=== PATIENT | female | born 1995 | race Two or more races ===

== ENCOUNTER 2016-10-27 09:38 | Emergency (ER) | payer OTHER ==
[2016-10-27] MEDS ORDERED: ACETAMINOPHEN IV (For NPO) 1,000 MG in SALINE 100 100ML.BAG IVPB STA (10:24)
[2016-10-27] MEDS ORDERED: SODIUM CHLORIDE 0.9% 1,000 ML IV STA ×4 (10:24→12:44)
[2016-10-27] MEDS ORDERED: ONDANSETRON 4 MG/2 ML VIAL IVP STA ×3 (10:24→17:49)
--- NOTE | 2016-10-27 10:27 | ED ---
General Adult HPI - General Chief complaint: Nausea/Vomiting/Diarrhea Stated complaint: VOMITING Time Seen by Provider: 10/27/16 10:15 Source: patient, RN notes reviewed Mode of arrival: ambulatory Limitations: no limitations - History of Present Illness Initial comments: Patient 21-year-old female who presents emergency room today with chief complaint of symptoms of nausea vomiting over the last 2 days. Does admit to abdominal pain greater on the left side of the abdomen. Patient states she's had a bile-like color. Denies any signs of blood. Describes it as a throbbing type pain. Denies any other complaints or symptoms. Patient denies any recent fever, chills, shortness of breath, chest pain, back pain, numbness or tingling , dysuria or hematuria, constipation or diarrhea, headaches or visual changes, or any other complaints. - Related Data Home Medications Medication Instructions Recorded Confirmed [id number] Acid 1 each PO AC-BID 08/26/15 10/27/16 [-U Capsule] Allergies Allergy/AdvReac Type Severity Reaction Status Date / Time codeine Allergy Rash/Hives Verified 10/27/16 10:00 Review of Systems ROS Statement: Those systems with pertinent positive or pertinent negative responses have been documented in the HPI. ROS Other: All systems not noted in ROS Statement are negative. Past Medical History Past Medical History: No Reported History History of Any Multi-Drug Resistant Organisms: None Reported Past Surgical History: No Surgical Hx Reported Past Anesthesia/Blood Transfusion Reactions: No Reported Reaction Past Psychological History: Anxiety, Depression Smoking Status: Former smoker Past Alcohol Use History: None Reported Past Drug Use History: None Reported - Past Family History Mother Family Medical History: No Reported History General Exam - General Exam Comments Initial Comments: General: The patient is awake and alert, in no distress, and does not appear acutely ill. Eye: Pupils are equal, round and reactive to light, extra-ocular movements are intact. No nystagmus. There is normal conjunctiva bilaterally. No signs of icterus. Ears, nose, mouth and throat: There are moist mucous membranes and no oral lesions. Neck: The neck is supple, there is no tenderness or JVD. Cardiovascular: There is a regular rate and rhythm. No murmur, rub or gallop is appreciated. Respiratory: Lungs are clear to auscultation, respirations are non-labored, breath sounds are equal. No wheezes, stridor, rales, or rhonchi. Gastrointestinal: Normal appearance abdomen. Normal bowel sounds. Soft on palpation. Patient does have tenderness greatest in epigastric. Mild tenderness in the left upper and lower quadrant. No rebound tenderness. No guarding. No CVA tenderness. Musculoskeletal: Normal ROM, no tenderness. Strength 5/5. Sensation intact. Pulses equal bilaterally 2+. Neurological: A&O x 3. CN II-XII intact, There are no obvious motor or sensory deficits. Coordination appears grossly intact. Speech is normal. Skin: Skin is warm and dry and no rashes or lesions are noted. Psychiatric: Cooperative, appropriate mood & affect, normal judgment. Limitations: no limitations Course Vital Signs 10/27/16 10/27/16 10/27/16 09:57 13:12 14:31 Temperature 98.0 F 97.8 F 98.8 F Pulse Rate 81 79 83 Respiratory 14 16 16 Rate Blood Pressure 134/76 130/74 127/86 O2 Sat by Pulse 99 99 98 Oximetry Medical Decision Making - Medical Decision Making Patient reexamined at this time shows no signs of distress resting comfortably in the bed. Patient's vitals are stable. No elevated blood pressure. No fever. Patient's labs been reviewed shows 13,000 white count. Shows amylase lipase elevated gradient 3000 and 20,000 aspect of the. Shows elevated liver enzymes. Patient denies any drinking. Patient ultrasound of the gallbladder does show evidence of gallstones. Case discussed with attending physician Dr. Preston who did discuss case with Dr. Devorah conklin for her PCP who recommends transfer for further evaluation possible ERCP. Case was discussed with the hospital. Admitting general surgeon Dr. Jean will admit the patient with a direct admit. Currently awaiting bed and patient will be transferred via EMS. Patient is updated of his results. Has been started on Unasyn here the emergency room. Patient's CT reviewed does show evidence of ascites. All information will be sent with patient during transfer. - Lab Data Result diagrams: 10/27/16 10:47 10/27/16 10:47 Lab Results 10/27/16 10/27/16 10/27/16 Range/Units 10:47 10:47 10:47 WBC 13.9 H (3.8-10.6) k/uL RBC 5.39 (3.80-5.40) m/uL Hgb 14.9 (11.4-16.0) gm/dL Hct 42.9 (34.0-46.0) % MCV 79.5 L (80.0-100.0) fL MCH 27.7 (25.0-35.0) pg MCHC 34.8 (31.0-37.0) g/dL RDW 15.2 (11.5-15.5) % Plt Count 297 (150-450) k/uL Neutrophils % 92 % Lymphocytes % 4 % Monocytes % 2 % Eosinophils % 1 % Basophils % 1 % Neutrophils # 12.8 H (1.3-7.7) k/uL Lymphocytes # 0.5 L (1.0-4.8) k/uL Monocytes # 0.3 (0-1.0) k/uL Eosinophils # 0.1 (0-0.7) k/uL Basophils # 0.2 (0-0.2) k/uL PT (9.0-12.0) sec INR (<1.1) APTT (22.0-30.0) sec Fibrinogen (200-500) mg/dL Sodium 145 (137-145) mmol/L Potassium 3.3 L (3.5-5.1) mmol/L Chloride 106 (98-107) mmol/L Carbon Dioxide 26 (22-30) mmol/L Anion Gap 13 mmol/L BUN 9 (7-17) mg/dL Creatinine 0.76 (0.52-1.04) mg/dL Est GFR (MDRD) Af Amer >60 (>60 ml/min/1.73 sqM) Est GFR (MDRD) Non-Af >60 (>60 ml/min/1.73 sqM) Glucose 133 H (74-99) mg/dL Calcium 10.0 (8.4-10.2) mg/dL Total Bilirubin 3.7 H (0.2-1.3) mg/dL AST 788 H (14-36) U/L ALT 1376 H (9-52) U/L Alkaline Phosphatase 251 H (38-126) U/L Lactate Dehydrogenase (313-618) U/L Total Protein 7.8 (6.3-8.2) g/dL Albumin 4.5 (3.5-5.0) g/dL Amylase 3369 H* (30-110) U/L Lipase >68059 H (23-300) U/L Urine Color Urine Appearance (Clear) Urine pH (5.0-8.0) Ur Specific [place] (1.001-1.035) Urine Protein (Negative) Urine Glucose (UA) (Negative) Urine Ketones (Negative) Urine Blood (Negative) Urine Nitrite (Negative) Urine Bilirubin (Negative) Urine Urobilinogen (<2.0) mg/dL Ur Leukocyte Esterase (Negative) Urine RBC (0-5) /hpf Urine WBC (0-5) /hpf Ur Squamous Epith Cells (0-4) /hpf Urine Mucus (None) /hpf Urine HCG, Qual Not Detected (Not Detectd) 10/27/16 10/27/16 10/27/16 Range/Units 10:47 12:41 12:41 WBC (3.8-10.6) k/uL RBC (3.80-5.40) m/uL Hgb (11.4-16.0) gm/dL Hct (34.0-46.0) % MCV (80.0-100.0) fL MCH (25.0-35.0) pg MCHC (31.0-37.0) g/dL RDW (11.5-15.5) % Plt Count (150-450) k/uL Neutrophils % % Lymphocytes % % Monocytes % % Eosinophils % % Basophils % % Neutrophils # (1.3-7.7) k/uL Lymphocytes # (1.0-4.8) k/uL Monocytes # (0-1.0) k/uL Eosinophils # (0-0.7) k/uL Basophils # (0-0.2) k/uL PT 11.4 (9.0-12.0) sec INR 1.1 (<1.1) APTT 21.7 L (22.0-30.0) sec Fibrinogen 372 (200-500) mg/dL Sodium (137-145) mmol/L Potassium (3.5-5.1) mmol/L Chloride (98-107) mmol/L Carbon Dioxide (22-30) mmol/L Anion Gap mmol/L BUN (7-17) mg/dL Creatinine (0.52-1.04) mg/dL Est GFR (MDRD) Af Amer (>60 ml/min/1.73 sqM) Est GFR (MDRD) Non-Af (>60 ml/min/1.73 sqM) Glucose (74-99) mg/dL Calcium (8.4-10.2) mg/dL Total Bilirubin (0.2-1.3) mg/dL AST (14-36) U/L ALT (9-52) U/L Alkaline Phosphatase (38-126) U/L Lactate Dehydrogenase 1095 H (313-618) U/L Total Protein (6.3-8.2) g/dL Albumin (3.5-5.0) g/dL Amylase (30-110) U/L Lipase (23-300) U/L Urine Color [place] Urine Appearance Cloudy H (Clear) Urine pH 5.5 (5.0-8.0) Ur Specific [place] 1.012 (1.001-1.035) Urine Protein 1+ H (Negative) Urine Glucose (UA) Negative (Negative) Urine Ketones Trace H (Negative) Urine Blood Negative (Negative) Urine Nitrite Negative (Negative) Urine Bilirubin 2+ H (Negative) Urine Urobilinogen 6.0 (<2.0) mg/dL Ur Leukocyte Esterase Large H (Negative) Urine RBC 2 (0-5) /hpf Urine WBC 22 H (0-5) /hpf Ur Squamous Epith Cells 46 H (0-4) /hpf Urine Mucus Few H (None) /hpf Urine HCG, Qual (Not Detectd) Disposition Clinical Impression: Choledocholithiasis with acute cholecystitis Disposition: OTHER INSTITUTION NOT DEFINED Condition: Stable Referrals: Mathieu Howard MD [Primary Care Provider] - 1-2 days Time of Disposition: 14:10 (Transferred by EMS) - Out of Hospital Transfer - Req. Specs Out of Hospital Transfer - Requested Specifics: Other Emergency Center ([facility])
[2016-10-27 11:01] LABS: Basophils # (A) 0.2 k/uL (0-0.2); Basophils % (A) 1 %; CH 28.2; CHCM 35.5; Eosinophils # (A) 0.1 k/uL (0-0.7); Eosinophils % (A) 1 %; HCT 42.9 % (34.0-46.0); HDW 2.36; HGB 14.9 gm/dL (11.4-16.0); Luc # (Auto) 0.05; Luc % (Auto) 0; Lymphocytes # (A) 0.5 k/uL (1.0-4.8); Lymphocytes % (A) 4 %; MCH 27.7 pg (25.0-35.0); MCHC 34.8 g/dL (31.0-37.0); MCV 79.5 fL (80.0-100.0); Mean Platelet Volume 7.3; Monocytes # (A) 0.3 k/uL (0-1.0); Monocytes % (A) 2 %; Neutrophils # (A) 12.8 k/uL (1.3-7.7); Neutrophils % (A) 92 %; RBC 5.39 m/uL (3.80-5.40); RDW 15.2 % (11.5-15.5); WBC 13.9 k/uL (3.8-10.6); WBC (Perox) 14.16
[2016-10-27 11:05] LABS: Appearance,Urine Cloudy (Clear); Bilirubin,Urine 2+ (Negative); Glucose,Urine (UA) Negative (Negative); Ketones,Urine Trace (Negative); Leukocyte Esterase,Urine Large (Negative); Mucus,Urine Few /hpf; Nitrite,Urine Negative (Negative); PH, Urine 5.5 (5.0-8.0); Particle Count 47241; Protein,Urine 1+ (Negative); RBC,Urine 2 /hpf (0-5); Specific Gravity,Urine 1.012 (1.001-1.035); Squamous Epithelial Cell,Urine 46 /hpf (0-4); UA Billing (MACRO vs. MICRO) MICRO; WBC,Urine 22 /hpf (0-5)
[2016-10-27 11:13] LABS: Alkaline Phosphatase 251 U/L (38-126); Anion Gap 13 mmol/L; Blood Urea Nitrogen 9 mg/dL (7-17); Carbon Dioxide 26 mmol/L (22-30); Chloride 106 mmol/L (98-107); Glucose 133 mg/dL (74-99); Non-African American GFR(MDRD) >60 (>60 ml/min/1.73 sqM); Potassium 3.3 mmol/L (3.5-5.1); Sodium 145 mmol/L (137-145); Total Bilirubin 3.7 mg/dL (0.2-1.3); Total Protein 7.8 g/dL (6.3-8.2)
--- NOTE | 2016-10-27 11:24 | XR ---
EXAMINATION TYPE: XR KUB DATE OF EXAM: 10/27/2016 11:15 AM CLINICAL HISTORY: Nausea and vomiting. TECHNIQUE: 2 upright KUB images of the abdomen are obtained COMPARISON: None. FINDINGS: Scattered gas is seen in non-distended stomach and small bowel loops. Gas slightly promine nt bowel loop upper to mid abdomen is present favors prominent transverse colon. Gas and fecal materi al is seen in non-distended colon along the periphery. There is no visceromegaly, pneumoperitoneum, or abnormal calcification appreciated. The lung bases are clear and the osseous structures are inta ct. IMPRESSION: Overall nonspecific favor nonobstructive bowel gas pattern.
[2016-10-27 11:46] LABS: AST 788 U/L (14-36); Amylase 3369 U/L (30-110)
[2016-10-27 11:47] LABS: ALT 1376 U/L (9-52)
--- NOTE | 2016-10-27 12:12 | US ---
EXAMINATION TYPE: US abdomen limited DATE OF EXAM: 10/27/2016 11:59 AM COMPARISON: NONE CLINICAL HISTORY: Pain. N/V for 2 days. EXAM MEASUREMENTS: Liver Length: 15.7 cm Gallbladder Wall: 0.3-0.4 cm CBD: 0.5 cm Right Kidney: 11.1 x 4.2 x 3.8 cm TECHNOLOGIST IMPRESSION: Pancreas: wnl Liver: wnl Gallbladder: multiple mobile stones seen Evidence for sonographic Scanlon's sign: no CBD: wnl Right Kidney: wnl Visualized pancreas is unremarkable. IVC is seen near hepatic dome. Visualized liver is felt within n ormal limits. Gallbladder is seen. There are multiple small mobile shadowing stones identified. Gall bladder wall appears mildly thickened at 3 to 4 mm. No pericholecystic fluid is seen. Sonographic Mur phy's sign is negative. IMPRESSION: There are multiple gallstones with mild abnormal gallbladder wall thickening. Findings in creased concern for acute cholecystitis though no abnormal gallbladder wall thickening or sonographic positive Scanlon sign is noted. Need to further investigate by HIDA scan should be based on clinical correlation.
[2016-10-27] MEDS ORDERED: RX INFO: IV CONTRAST WAS GIVEN 1 EACH MISC MISCELLANE PRN (12:22)
[2016-10-27 13:10] LABS: INR 1.1 (<1.1); Partial Thromboplastin Time 21.7 sec (22.0-30.0); Prothrombin Time 11.4 sec (9.0-12.0)
[2016-10-27] MEDS ORDERED: AMPICILLIN-SULBACTAM 3 GM in SODIUM CHLORIDE 0.9% 100 ML IVPB STA (13:43)
--- NOTE | 2016-10-27 14:14 | CT ---
EXAMINATION TYPE: CT abdomen pelvis w con DATE OF EXAM: 10/27/2016 2:04 PM COMPARISON: Prior ultrasound abdomen same date HISTORY: Nausea and vomiting for [address] DLP: 428.20 mGycm Automated exposure control for dose reduction was used. TECHNIQUE: Helical acquisition of images was performed from the lung bases through the pelvis. CONTRAST: Performed without Oral Contrast and with IV Contrast, patient injected with 100 ml mL of Omnipaque 30 0. FINDINGS: LUNG BASES: No significant abnormality is appreciated. LIVER/GB: Some pericholecystic fluid is present, dependent hyperdensity compatible with stones. Gallb ladder wall thickening is minimal and may be due to pericholecystic fluid, ascites PANCREAS: No significant abnormality is seen. SPLEEN: No significant abnormality is seen. ADRENALS: No significant abnormality is seen. KIDNEYS: No significant abnormality is seen. RETROPERITONEAL ADENOPATHY: None visualized REPRODUCTIVE ORGANS: No significant abnormality is seen URINARY BLADDER: No significant abnormality is seen. PELVIC ADENOPATHY: None visualized. OSSEOUS STRUCTURES: No significant abnormality is seen. BOWEL: The appendix does not appear dilated, some fluid does track along the right paracolic gutter and within the abdomen, there is no bowel obstruction. OTHER: IMPRESSION: THERE IS ASCITES PRESENT. CORRELATE TO EXCLUDE CHOLECYSTITIS. FOLLOW-UP INDICATED. APPENDICITIS NO T FELT TO BE PRESENT.
[2016-10-27] MEDS ORDERED: HYDROmorphone 1 MG/ML 1 ML SYRINGE IVP STA ×2 (14:22→17:42)
[2016-10-27] MEDS: POTASSIUM CHLORIDE 10 MEQ, LIDOCAINE 2% INJ 10 MG in SODIUM CHLORIDE 0.9% 100 ML IVPB SCH ×3 (14:24→16:27)
[2016-10-27 17:56] VITALS: BP 120/65; PULSE 78; RESP 16; TEMP 97.5
== END 2016-10-27 17:54 | disposition short-term general hospital (02) ==
LOC: EC 09:38
DX: K80.42 Calculus of bile duct with acute cholecystitis without obstruction (principal); R79.89 Other specified abnormal findings of blood chemistry; R18.8 Other ascites; Z87.891 Personal history of nicotine dependence; Z79.899 Other long term (current) drug therapy; Z88.5 Allergy status to narcotic agent
CPT/HCPCS: 99285 ×2; 96365 ×2; 96366 ×3; 96368 ×2; 96375 ×4; 96376 ×4; 36415; 80053; 82150; 83615; 83690; 85025; 85384; 85610; 85730; 81001; 81025; 87491; 87591; 74000; 76705; 74177; J2001; J2405; J3480; J1170; Q9967; J0295; J0131

== ENCOUNTER 2017-03-26 13:56 | Emergency (ER) | payer OTHER ==
[2017-03-26 14:02] VITALS: RESP 18
[2017-03-26] MEDS ORDERED: ACETAMINOPHEN TAB 325 MG TAB PO STA (14:14)
[2017-03-26] MEDS ORDERED: RX INFO: IV CONTRAST WAS GIVEN 1 EACH MISC MISCELLANE PRN (14:16)
[2017-03-26] MEDS ORDERED: METOCLOPRAMIDE 5 MG/ML 2 ML VIAL IVP STA (14:17)
[2017-03-26] MEDS: SODIUM CHLORIDE 0.9% 500 ML IV SCH ×2 (14:39→14:40)
[2017-03-26 15:03] LABS: ALT 48 U/L (9-52); AST 33 U/L (14-36); Alkaline Phosphatase 89 U/L (38-126); Anion Gap 12 mmol/L; Blood Urea Nitrogen 11 mg/dL (7-17); Calcium 9.6 mg/dL (8.4-10.2); Carbon Dioxide 22 mmol/L (22-30); Chloride 105 mmol/L (98-107); Glucose 93 mg/dL (74-99); Non-African American GFR(MDRD) >60 (>60 ml/min/1.73 sqM); Potassium 3.6 mmol/L (3.5-5.1); Sodium 139 mmol/L (137-145); Total Bilirubin 0.9 mg/dL (0.2-1.3); Total Protein 7.8 g/dL (6.3-8.2)
[2017-03-26 15:05] LABS: Basophils # (A) 0.1 k/uL (0-0.2); Basophils % (A) 0 %; CH 28.5; CHCM 36.8; Eosinophils # (A) 0.2 k/uL (0-0.7); Eosinophils % (A) 1 %; HCT 38.6 % (34.0-46.0); HDW 2.29; HGB 14.5 gm/dL (11.4-16.0); Luc # (Auto) 0.13; Luc % (Auto) 1; Lymphocytes # (A) 1.2 k/uL (1.0-4.8); Lymphocytes % (A) 7 %; MCH 29.2 pg (25.0-35.0); MCHC 37.6 g/dL (31.0-37.0); MCV 77.6 fL (80.0-100.0); Monocytes # (A) 1.1 k/uL (0-1.0); Monocytes % (A) 6 %; Neutrophils % (A) 86 %; RBC 4.98 m/uL (3.80-5.40); RDW 13.3 % (11.5-15.5); WBC 18.8 k/uL (3.8-10.6); WBC (Perox) 17.89
[2017-03-26 15:07] LABS: Appearance,Urine Cloudy (Clear); Bilirubin,Urine Negative (Negative); Glucose,Urine (UA) Negative (Negative); Ketones,Urine 1+ (Negative); Leukocyte Esterase,Urine Negative (Negative); Mucus,Urine Rare /hpf; Nitrite,Urine Negative (Negative); PH, Urine 6.5 (5.0-8.0); Particle Count 5837; Protein,Urine 1+ (Negative); RBC,Urine 3 /hpf (0-5); Specific Gravity,Urine 1.032 (1.001-1.035); Squamous Epithelial Cell,Urine 4 /hpf (0-4); UA Billing (MACRO vs. MICRO) MICRO; WBC,Urine 2 /hpf (0-5)
--- NOTE | 2017-03-26 15:17 | ED ---
General Adult HPI - General Chief complaint: Abdominal Pain Stated complaint: Sore Throat Time Seen by Provider: 03/26/17 14:03 Source: patient Mode of arrival: ambulatory Limitations: no limitations - History of Present Illness Initial comments: Patient is a 22 yo female who presents to the ED for evaluation of fever, nausea , fatigue and RLQ abdominal pain. patient states she was in her usual state of health yesterday, she does report that she took Plan B oral anti-contraceptive yesterday. Patient states she woke this morning feeling like she "got hit by a truck." Patient states she felt febrile, chilled, nauseated, diaphoretic and had no appetite. She attempted to eat a marleni cracker but couldn't stomach it. - Related Data Home Medications Medication Instructions Recorded Confirmed Levonorgestrel [Plan B One-Step] 1.5 mg PO ONCE 03/26/17 03/26/17 Multivitamins, Thera [Multivitamin 1 tab PO DAILY 03/26/17 03/26/17 (formulary)] Allergies Allergy/AdvReac Type Severity Reaction Status Date / Time codeine Allergy Rash/Hives Verified 03/26/17 14:21 Review of Systems ROS Statement: Those systems with pertinent positive or pertinent negative responses have been documented in the HPI. ROS Other: All systems not noted in ROS Statement are negative. Constitutional: Reports: fever, chills Eyes: Denies: vision change ENT: Reports: throat pain. Denies: ear pain Respiratory: Denies: cough, dyspnea, wheezes Cardiovascular: Denies: chest pain, palpitations Endocrine: Reports: fatigue Gastrointestinal: Reports: abdominal pain, nausea. Denies: vomiting, diarrhea, constipation Genitourinary: Denies: urgency, dysuria, frequency Musculoskeletal: Denies: back pain Skin: Denies: rash, lesions Neurological: Denies: headache Psychiatric: Denies: anxiety Hematological/Lymphatic: Denies: easy bleeding, easy bruising Past Medical History Past Medical History: No Reported History History of Any Multi-Drug Resistant Organisms: None Reported Past Surgical History: Cholecystectomy Past Anesthesia/Blood Transfusion Reactions: No Reported Reaction Past Psychological History: Anxiety, Depression Smoking Status: Former smoker Past Alcohol Use History: None Reported Past Drug Use History: None Reported - Past Family History Mother Family Medical History: No Reported History General Exam Limitations: no limitations General appearance: alert, other (appears uncomfortable) Head exam: Present: atraumatic, normocephalic Eye exam: Present: PERRL ENT exam: Present: normal exam Neck exam: Present: normal inspection. Absent: meningismus Respiratory exam: Present: normal lung sounds bilaterally. Absent: respiratory distress Cardiovascular Exam: Present: normal rhythm, tachycardia GI/Abdominal exam: Present: soft, tenderness (tenderness in RLQ), normal bowel sounds. Absent: rebound, rigid Rectal exam: Present: deferred Extremities exam: Present: normal inspection, full ROM, normal capillary refill. Absent: tenderness Back exam: Present: normal inspection Neurological exam: Present: alert, oriented X3, CN II-XII intact Psychiatric exam: Present: normal affect Skin exam: Present: warm Course Vital Signs 03/26/17 03/26/17 13:58 15:56 Temperature 100.1 F H 97.8 F Pulse Rate 117 H 100 Respiratory 18 18 Rate Blood Pressure 111/60 111/62 O2 Sat by Pulse 97 97 Oximetry - Reevaluation(s) Reevaluation #1: Patient reevaluated, reports feeling much better after medications. IVF infusing. patient breast fed daughter while receiving fluids. 03/26/17 15:34 Reevaluation #2: Patient reevaluated, resting comfortably. Reports she feels well. Advised of lab and CT findings. Eager for discharge home. 03/26/17 16:44 Medical Decision Making - Medical Decision Making patient seen and evaluated history obtained from patient, medical record history concerning for appendicitis as the patient has fever, anorexia and RLQ pain urine and HCG ordered Labs with leukocytosis with neutrophilia UA with no evidence of UTI Patient reports significant improvement after antiemetics and fluids Vitals improved, tachycardia reduced, fever resolved CT with enteritis, fluid in small bowel, no acute appendicitis Results discussed with patient and significant other at bedside. She was advised of leukocytosis as well as CT findings. Advised that urine and strep were negative. Patient reports feeling very well after IV fluids and antiemetics. Patient is eager for discharge home. She was advised to follow up with her primary care physician by the end of the week or to return to the emergency department for any worsening of her symptoms. Eyes patient that based on CT findings of possible enteritis it is likely she will experience mild abdominal pain as well as bowel abnormalities including diarrhea or possibly constipation for the next couple days. Advised her to return to the ER if she expresses any worsening, nausea or vomiting, inability tolerate oral intake or development of any considerations for dehydration. Patient's breast understanding and agreement with plan. - Lab Data Result diagrams: 03/26/17 14:35 03/26/17 14:35 Lab Results 03/26/17 03/26/17 03/26/17 Range/Units 14:35 14:35 14:35 WBC 18.8 H (3.8-10.6) k/uL RBC 4.98 (3.80-5.40) m/uL Hgb 14.5 (11.4-16.0) gm/dL Hct 38.6 (34.0-46.0) % MCV 77.6 L (80.0-100.0) fL MCH 29.2 (25.0-35.0) pg MCHC 37.6 H (31.0-37.0) g/dL RDW 13.3 (11.5-15.5) % Plt Count 288 (150-450) k/uL Neutrophils % 86 % Lymphocytes % 7 % Monocytes % 6 % Eosinophils % 1 % Basophils % 0 % Neutrophils # 16.0 H (1.3-7.7) k/uL Lymphocytes # 1.2 (1.0-4.8) k/uL Monocytes # 1.1 H (0-1.0) k/uL Eosinophils # 0.2 (0-0.7) k/uL Basophils # 0.1 (0-0.2) k/uL Sodium 139 (137-145) mmol/L Potassium 3.6 (3.5-5.1) mmol/L Chloride 105 (98-107) mmol/L Carbon Dioxide 22 (22-30) mmol/L Anion Gap 12 mmol/L BUN 11 (7-17) mg/dL Creatinine 0.60 (0.52-1.04) mg/dL Est GFR (MDRD) Af Amer >60 (>60 ml/min/1.73 sqM) Est GFR (MDRD) Non-Af >60 (>60 ml/min/1.73 sqM) Glucose 93 (74-99) mg/dL Plasma Lactic Acid Josh 1.0 (0.7-2.0) mmol/L Calcium 9.6 (8.4-10.2) mg/dL Total Bilirubin 0.9 (0.2-1.3) mg/dL AST 33 (14-36) U/L ALT 48 (9-52) U/L Alkaline Phosphatase 89 (38-126) U/L Total Protein 7.8 (6.3-8.2) g/dL Albumin 4.7 (3.5-5.0) g/dL Urine Color Urine Appearance (Clear) Urine pH (5.0-8.0) Ur Specific [place] (1.001-1.035) Urine Protein (Negative) Urine Glucose (UA) (Negative) Urine Ketones (Negative) Urine Blood (Negative) Urine Nitrite (Negative) Urine Bilirubin (Negative) Urine Urobilinogen (<2.0) mg/dL Ur Leukocyte Esterase (Negative) Urine RBC (0-5) /hpf Urine WBC (0-5) /hpf Ur Squamous Epith Cells (0-4) /hpf Urine Mucus (None) /hpf Urine HCG, Qual (Not Detectd) Group A Strep Rapid (Negative) 03/26/17 03/26/17 03/26/17 Range/Units 14:35 14:35 14:35 WBC (3.8-10.6) k/uL RBC (3.80-5.40) m/uL Hgb (11.4-16.0) gm/dL Hct (34.0-46.0) % MCV (80.0-100.0) fL MCH (25.0-35.0) pg MCHC (31.0-37.0) g/dL RDW (11.5-15.5) % Plt Count (150-450) k/uL Neutrophils % % Lymphocytes % % Monocytes % % Eosinophils % % Basophils % % Neutrophils # (1.3-7.7) k/uL Lymphocytes # (1.0-4.8) k/uL Monocytes # (0-1.0) k/uL Eosinophils # (0-0.7) k/uL Basophils # (0-0.2) k/uL Sodium (137-145) mmol/L Potassium (3.5-5.1) mmol/L Chloride (98-107) mmol/L Carbon Dioxide (22-30) mmol/L Anion Gap mmol/L BUN (7-17) mg/dL Creatinine (0.52-1.04) mg/dL Est GFR (MDRD) Af Amer (>60 ml/min/1.73 sqM) Est GFR (MDRD) Non-Af (>60 ml/min/1.73 sqM) Glucose (74-99) mg/dL Plasma Lactic Acid Josh (0.7-2.0) mmol/L Calcium (8.4-10.2) mg/dL Total Bilirubin (0.2-1.3) mg/dL AST (14-36) U/L ALT (9-52) U/L Alkaline Phosphatase (38-126) U/L Total Protein (6.3-8.2) g/dL Albumin (3.5-5.0) g/dL Urine Color Yellow Urine Appearance Cloudy H (Clear) Urine pH 6.5 (5.0-8.0) Ur Specific [place] 1.032 (1.001-1.035) Urine Protein 1+ H (Negative) Urine Glucose (UA) Negative (Negative) Urine Ketones 1+ H (Negative) Urine Blood Negative (Negative) Urine Nitrite Negative (Negative) Urine Bilirubin Negative (Negative) Urine Urobilinogen 2.0 (<2.0) mg/dL Ur Leukocyte Esterase Negative (Negative) Urine RBC 3 (0-5) /hpf Urine WBC 2 (0-5) /hpf Ur Squamous Epith Cells 4 (0-4) /hpf Urine Mucus Rare H (None) /hpf Urine HCG, Qual Not Detected (Not Detectd) Group A Strep Rapid Negative (Negative) Disposition Clinical Impression: Abdominal pain, Leukocytosis, Enteritis, Mesenteric adenitis Disposition: HOME SELF-CARE Condition: Good Instructions: Abdominal Pain (ED) Referrals: Mathieu Howard MD [Primary Care Provider] - 1-2 days Time of Disposition: 16:38
--- NOTE | 2017-03-26 16:11 | CT ---
EXAMINATION TYPE: CT abdomen pelvis w con DATE OF EXAM: 03/26/2017 COMPARISON: 10/27/2016 HISTORY: 22-year-old female abdominal pain, nausea, sore throat, body aches X 2 days, hx of shanice, ne g HCG TECHNIQUE: Contiguous axial scanning of the abdomen and pelvis following administration of 100 ml Omn ipaque 300 IV contrast. Delayed images through the kidneys and coronal/sagittal reconstructions perf ormed. CT DLP: 905 mGycm Automated exposure control for dose reduction was used. FINDINGS: The heart is normal size without pericardial effusion. Lung bases are clear without pleural effusion. The liver measures at the upper limits of normal in size at 17.5 cm craniocaudal. No focal liver lesi on is seen. There is mild prominence to the biliary system but with normal distal tapering of the bile duct. Find ings likely due to postcholecystectomy status. Portal venous system is patent. Adrenal glands, kidneys, spleen, and pancreas show no gross abnormality. Scattered nonenlarged mesenteric lymph nodes are present. However, a few borderline to mildly enlarge d right lower quadrant mesenteric lymph nodes are seen measuring up to 7 mm. Normal caliber appendix is seen, coronal image 37. Some prominent fluid-filled small bowel loops in the lower abdomen. There is some mild circumferentia l wall thickening of the mid ascending colon that could relate to nondistention, axial image 39 and c oronal image 36. The remainder of the colon shows moderate stool burden. Mild circumferential bladder wall thickening. Uterus and ovaries are visualized. Prominent follicular change in the right ovary with a 1.7 cm dominant follicle or functional cyst. No abnormal fluid sanjana ection in the pelvis. Bones: No osseous destructive process. IMPRESSION: 1. PROMINENT FLUID FILLED SMALL BOWEL LOOPS IN THE LOWER ABDOMEN. ADDITIONAL CIRCUMFERENTIAL WALL THI CKENING OF THE MID ASCENDING COLON. CORRELATE FOR POSSIBLE ENTEROCOLITIS. 2. MILD CIRCUMFERENTIAL BLADDER WALL THICKENING. CORRELATE FOR POSSIBLE CYSTITIS.
[2017-03-26 16:44] VITALS: BP 120/70; PULSE 91; TEMP 98
== END 2017-03-26 16:45 | disposition home or self-care (01) ==
LOC: EC 13:56
DX: K52.9 Noninfective gastroenteritis and colitis, unspecified (principal); I88.0 Nonspecific mesenteric lymphadenitis; D72.828 Other elevated white blood cell count; R00.0 Tachycardia, unspecified; Z87.891 Personal history of nicotine dependence; Z79.3 Long term (current) use of hormonal contraceptives; Z79.899 Other long term (current) drug therapy; Z88.5 Allergy status to narcotic agent; Z90.49 Acquired absence of other specified parts of digestive tract
CPT/HCPCS: 36415; 80053; 83605; 85025; 81001; 81025; 87040; 87086; 87081; 87430; 74177; 99284; 96374; 96361; J2765; Q9967

== ENCOUNTER 2017-04-02 10:44 | Inpatient (IN) | payer MEDICAID, OTHER ==
[2017-04-02 10:57] VITALS: RESP 16
[2017-04-02] MEDS ORDERED: SODIUM CHLORIDE 0.9% 1,000 ML IV STA (11:59)
[2017-04-02] MEDS ORDERED: ONDANSETRON 4 MG/2 ML VIAL IVP STA (11:59)
--- NOTE | 2017-04-02 12:04 | ED ---
Psych HPI - General Source: patient, police, EMS Mode of arrival: EMS <Carlos A Cruz - Last Filed: 04/02/17 16:47> <Karlo López - Last Filed: 04/02/17 18:29> - General Chief Complaint: Psychiatric Symptoms Stated Complaint: Mental Health Time Seen by Provider: 04/02/17 11:47 - History of Present Illness Initial Comments: This 22-year-old Afro-French female presents with psychiatric complaints. She relates that she's had significant amount of stress with relationship issues and the single fulminate this past evening. She apparently took a handful of tramadol 50 mg pills. She is unsure of the exact amount. She took these at 11:30 PM. She states that at approximately one half hour afterwards she became very nauseated and vomited. She is unsure if there is any pill fragments in the vomitus. She has continued with nausea and occasional vomiting. She states that she feels somewhat tired as well. Nursing Notes relate that she overdosed on trazodone but she is able to better clarify at his point and states that it was leftover tramadol from her recent gallbladder surgery and it was definitely a pain pill. She denies any other medical complaints. She certainly relates that she was trying to "and it all". She relates that she cannot handle the stress anymore. She also presents with abrasions to her bilateral forearms much worse on the left side. These are self -induced. Her last tetanus was just 6 months ago. She is unsure if she is . No other complaints or modifying factors. (Carlos A Cruz) - Related Data Home Medications Medication Instructions Recorded Confirmed Levonorgestrel [Plan B One-Step] 1.5 mg PO ONCE 03/26/17 04/02/17 Multivitamins, Thera [Multivitamin 1 tab PO DAILY 03/26/17 04/02/17 (formulary)] Allergies Allergy/AdvReac Type Severity Reaction Status Date / Time codeine Allergy Rash/Hives Verified 04/02/17 11:43 Review of Systems ROS Other: All systems not noted in ROS Statement are negative. <Carlos A Cruz - Last Filed: 04/02/17 16:47> ROS Other: All systems not noted in ROS Statement are negative. <Karlo López - Last Filed: 04/02/17 18:29> ROS Statement: Those systems with pertinent positive or pertinent negative responses have been documented in the HPI. Past Medical History Past Medical History: No Reported History History of Any Multi-Drug Resistant Organisms: None Reported Past Surgical History: Cholecystectomy Past Anesthesia/Blood Transfusion Reactions: No Reported Reaction Past Psychological History: Anxiety, Depression Smoking Status: Former smoker Past Alcohol Use History: None Reported Past Drug Use History: None Reported - Past Family History Mother Family Medical History: No Reported History <Carlos A Cruz - Last Filed: 04/02/17 16:47> General Exam Limitations: no limitations <Carlos A Cruz - Last Filed: 04/02/17 16:47> <Karlo López - Last Filed: 04/02/17 18:29> - General Exam Comments Initial Comments: GENERAL: The patient is well nourished and well hydrated. VITAL SIGNS: Heart rate, blood pressure, respiratory rate reviewed as recorded in nurse's notes. EYES: Pupils are round and reactive. Extraocular movements are intact. No conjunctival / lid redness or swelling. ENT: No external evidence of injury, swelling, or ecchymosis. Airway is patent. Throat is clear. NECK: Nontender. No swelling or evidence of injury. No subcutaneous emphysema. Trachea is midline. No thyroid mass. HEART: Regular rate and rhythm. Good peripheral pulses. LUNGS/CHEST: Breath sounds clear and equal bilaterally. No rales, rhonchi, or wheezes. No ecchymosis, subcutaneous emphysema, or tenderness. ABDOMEN: Abdomen soft without tenderness. No palpable masses or organomegaly. No peritoneal signs. No abdominal wall swelling or ecchymosis. EXTREMITIES: No extremity tenderness. Normal muscle tone and function. No thoracolumbar tenderness. NEUROLOGIC: Sensation is grossly intact. Cranial nerve exam reveals face is symmetrical, tongue is midline, speech is clear. SKIN: No abrasions or ecchymosis is noted. There are abrasions noted to her bilateral forearms much worse on the left side. There are no repairable lacerations. PSYCHIATRIC: Alert and oriented. Appropriate behavior and judgment. (Carlos A Cruz) Medical Decision Making - Lab Data Result diagrams: 04/02/17 12:20 04/02/17 12:20 <Carlos A Cruz - Last Filed: 04/02/17 16:47> - Lab Data Result diagrams: 04/02/17 12:20 04/02/17 12:20 <Karlo López - Last Filed: 04/02/17 18:29> - Medical Decision Making The patient was seen and examined. All diagnostics were reviewed. An IV is started and she is hydrated and received some Zofran intravenously. The EKG shows a normal sinus rhythm at a rate of 95. There is no acute ST-T wave changes identified. The AR interval is 150, QRS duration 70, and the QTc interval is 475. The laboratory does show some mild elevation of the white blood cell count which is minimal. The remainder of labs are all essentially within normal limits. This felt as though she could be medically cleared for further psychiatric treatment. The case is discussed with the psychiatric nurse and we're pending psychiatric recommendations/placement. Care will be passed off to oncoming physician at shift change. (Carlos A Cruz) Patient evaluated by EPS and they recommend inpatient admission. They will place admission orders. Patient is medically clear for psychiatric hospitalization (Karlo López) - Lab Data Lab Results 04/02/17 04/02/17 04/02/17 Range/Units 12:20 12:20 12:20 WBC 15.8 H (3.8-10.6) k/uL RBC 4.88 (3.80-5.40) m/uL Hgb 13.8 (11.4-16.0) gm/dL Hct 38.6 (34.0-46.0) % MCV 79.1 L (80.0-100.0) fL MCH 28.3 (25.0-35.0) pg MCHC 35.7 (31.0-37.0) g/dL RDW 13.2 (11.5-15.5) % Plt Count 372 (150-450) k/uL Neutrophils % 84 % Lymphocytes % 12 % Monocytes % 3 % Eosinophils % 1 % Basophils % 0 % Neutrophils # 13.2 H (1.3-7.7) k/uL Lymphocytes # 1.8 (1.0-4.8) k/uL Monocytes # 0.4 (0-1.0) k/uL Eosinophils # 0.1 (0-0.7) k/uL Basophils # 0.0 (0-0.2) k/uL Sodium 140 (137-145) mmol/L Potassium 4.0 (3.5-5.1) mmol/L Chloride 108 H (98-107) mmol/L Carbon Dioxide 23 (22-30) mmol/L Anion Gap 9 mmol/L BUN 11 (7-17) mg/dL Creatinine 0.51 L (0.52-1.04) mg/dL Est GFR (MDRD) Af Amer >60 (>60 ml/min/1.73 sqM) Est GFR (MDRD) Non-Af >60 (>60 ml/min/1.73 sqM) Glucose 92 (74-99) mg/dL Calcium 9.1 (8.4-10.2) mg/dL Urine Color Yellow Urine Appearance Clear (Clear) Urine pH 7.5 (5.0-8.0) Ur Specific [place] 1.021 (1.001-1.035) Urine Protein Trace H (Negative) Urine Glucose (UA) Negative (Negative) Urine Ketones Trace H (Negative) Urine Blood Negative (Negative) Urine Nitrite Negative (Negative) Urine Bilirubin Negative (Negative) Urine Urobilinogen <2.0 (<2.0) mg/dL Ur Leukocyte Esterase Negative (Negative) Urine HCG, Qual (Not Detectd) Salicylates <1.0 mg/dL Urine Opiates Screen Not Detected (NotDetected) Ur Oxycodone Screen Not Detected (NotDetected) Urine Methadone Screen Not Detected (NotDetected) Ur Propoxyphene Screen Not Detected (NotDetected) Acetaminophen <10.0 ug/mL Ur Barbiturates Screen Not Detected (NotDetected) U Tricyclic Antidepress Not Detected (NotDetected) Ur Phencyclidine Scrn Not Detected (NotDetected) Ur Amphetamines Screen Not Detected (NotDetected) U Methamphetamines Scrn Not Detected (NotDetected) U Benzodiazepines Scrn Not Detected (NotDetected) Urine Cocaine Screen Not Detected (NotDetected) U Marijuana (THC) Screen Not Detected (NotDetected) Serum Alcohol <10 mg/dL 04/02/17 Range/Units 12:20 WBC (3.8-10.6) k/uL RBC (3.80-5.40) m/uL Hgb (11.4-16.0) gm/dL Hct (34.0-46.0) % MCV (80.0-100.0) fL MCH (25.0-35.0) pg MCHC (31.0-37.0) g/dL RDW (11.5-15.5) % Plt Count (150-450) k/uL Neutrophils % % Lymphocytes % % Monocytes % % Eosinophils % % Basophils % % Neutrophils # (1.3-7.7) k/uL Lymphocytes # (1.0-4.8) k/uL Monocytes # (0-1.0) k/uL Eosinophils # (0-0.7) k/uL Basophils # (0-0.2) k/uL Sodium (137-145) mmol/L Potassium (3.5-5.1) mmol/L Chloride (98-107) mmol/L Carbon Dioxide (22-30) mmol/L Anion Gap mmol/L BUN (7-17) mg/dL Creatinine (0.52-1.04) mg/dL Est GFR (MDRD) Af Amer (>60 ml/min/1.73 sqM) Est GFR (MDRD) Non-Af (>60 ml/min/1.73 sqM) Glucose (74-99) mg/dL Calcium (8.4-10.2) mg/dL Urine Color Urine Appearance (Clear) Urine pH (5.0-8.0) Ur Specific [place] (1.001-1.035) Urine Protein (Negative) Urine Glucose (UA) (Negative) Urine Ketones (Negative) Urine Blood (Negative) Urine Nitrite (Negative) Urine Bilirubin (Negative) Urine Urobilinogen (<2.0) mg/dL Ur Leukocyte Esterase (Negative) Urine HCG, Qual Not Detected (Not Detectd) Salicylates mg/dL Urine Opiates Screen (NotDetected) Ur Oxycodone Screen (NotDetected) Urine Methadone Screen (NotDetected) Ur Propoxyphene Screen (NotDetected) Acetaminophen ug/mL Ur Barbiturates Screen (NotDetected) U Tricyclic Antidepress (NotDetected) Ur Phencyclidine Scrn (NotDetected) Ur Amphetamines Screen (NotDetected) U Methamphetamines Scrn (NotDetected) U Benzodiazepines Scrn (NotDetected) Urine Cocaine Screen (NotDetected) U Marijuana (THC) Screen (NotDetected) Serum Alcohol mg/dL Disposition <Carlos A Cruz - Last Filed: 04/02/17 16:47> <Karlo López - Last Filed: 04/02/17 18:29> Clinical Impression: Overdose, Depression, Suicidal ideation, Attempted suicide, Self-mutilation, Forearm abrasion Disposition: ADMITTED IP TO THIS [facility] Condition: Serious Referrals: Mathieu Howard MD [Primary Care Provider] - 1-2 days
[2017-04-02 12:29] LABS: Appearance,Urine Clear (Clear); Bilirubin,Urine Negative (Negative); Glucose,Urine (UA) Negative (Negative); Ketones,Urine Trace (Negative); Leukocyte Esterase,Urine Negative (Negative); Nitrite,Urine Negative (Negative); PH, Urine 7.5 (5.0-8.0); Protein,Urine Trace (Negative); Specific Gravity,Urine 1.021 (1.001-1.035); UA Billing (MACRO vs. MICRO) CHEM; Urobilinogen,Urine <2.0 mg/dL (<2.0)
[2017-04-02 12:36] LABS: Basophils % (A) 0 %; CH 28.3; CHCM 35.9; Eosinophils # (A) 0.1 k/uL (0-0.7); Eosinophils % (A) 1 %; HCT 38.6 % (34.0-46.0); HDW 2.46; HGB 13.8 gm/dL (11.4-16.0); Luc # (Auto) 0.12; Luc % (Auto) 1; Lymphocytes # (A) 1.8 k/uL (1.0-4.8); Lymphocytes % (A) 12 %; MCH 28.3 pg (25.0-35.0); MCHC 35.7 g/dL (31.0-37.0); MCV 79.1 fL (80.0-100.0); Mean Platelet Volume 6.4; Monocytes # (A) 0.4 k/uL (0-1.0); Monocytes % (A) 3 %; Neutrophils # (A) 13.2 k/uL (1.3-7.7); Neutrophils % (A) 84 %; RBC 4.88 m/uL (3.80-5.40); RDW 13.2 % (11.5-15.5); WBC 15.8 k/uL (3.8-10.6); WBC (Perox) 15.82
[2017-04-02 12:44] LABS: Acetaminophen <10.0 ug/mL; Alcohol <10 mg/dL; Anion Gap 9 mmol/L; Blood Urea Nitrogen 11 mg/dL (7-17); Calcium 9.1 mg/dL (8.4-10.2); Carbon Dioxide 23 mmol/L (22-30); Chloride 108 mmol/L (98-107); Glucose 92 mg/dL (74-99); Non-African American GFR(MDRD) >60 (>60 ml/min/1.73 sqM); Salicylate <1.0 mg/dL; Sodium 140 mmol/L (137-145)
[2017-04-02] MEDS ORDERED: IV VANCOMYCIN PER PHARMACY 1 EACH MISC MISCELLANE PRN (18:23)
[2017-04-02] MEDS ORDERED: CEFEPIME 1 GM in SODIUM CHLORIDE 0.9% 50 ML IVPB STA (18:23)
[2017-04-02] MEDS ORDERED: VANCOMYCIN 1,250 MG in SODIUM CHLORIDE 0.9% 250 ML IVPB SCH (20:00)
[2017-04-02] MEDS ORDERED: LORazepam 1 MG TAB PO PRN (20:09)
[2017-04-02] MEDS ORDERED: ACETAMINOPHEN TAB 325 MG TAB PO PRN (20:09)
[2017-04-02] MEDS ORDERED: MAG HYDROX/AL HYDROX/SIMETH 30 ML CUP PO PRN (20:09)
[2017-04-02] MEDS ORDERED: MAGNESIUM HYDROXIDE 2,400 MG/10 ML CUP PO PRN (20:09)
[2017-04-03] MEDS: SERTRALINE 50 MG TAB PO SCH (11:20)
[2017-04-03] MEDS: MULTIVITAMINS, THERA 1 EACH TAB PO SCH (12:30)
[2017-04-03] MEDS: MUPIROCIN 2% OINT 22 GM TUBE TOPICAL SCH ×2 (12:32→21:54)
--- NOTE | 2017-04-03 13:46 | P.MDCNMH ---
History of Present Illness H&P Date: 04/03/17 This is a 22-year-old -Macanese female patient of Dr. Howard with a past medical history for anxiety and depression. Patient presented to [facility] due to increasing stress with relationship issues. She apparently took a handful of tramadol 50 mg tablets unsure of the exact amount. She vomited a half hour afterwards with continued nausea. She did vomit pill fragments. She continued to have nausea and feeling tired. She has overdosed on trazodone in the past. She has self-induced wounds to bilateral forearms. Tetanus was 6 months ago. White count was noted to be 15.8 and otherwise labs were in normal range. HCG was negative. Urine drug screen was negative. Salicylate, acetaminophen and serum alcohol level were within normal limits. Patient was subsequently admitted to the mental health unit. Patient has not been on any medications for depression. She is breast- feeding a 6-month-old. She does state that she had depression with her son the last couple months but this does not seem the same. Patient also complains of sore throat for which amoxicillin has been added and may be cause of leukocytosis. Review of Systems All systems: negative Constitutional: Denies chills, Denies fever Eyes: denies blurred vision, denies pain Ears, nose, mouth and throat: Reports sore throat, Denies headache Cardiovascular: Denies chest pain, Denies shortness of breath Respiratory: Denies cough Gastrointestinal: Denies abdominal pain, Denies diarrhea, Denies nausea, Denies vomiting Genitourinary: Denies dysuria, Denies hematuria Musculoskeletal: Denies myalgias Integumentary: Reports wounds, Denies pruritus, Denies rash Neurological: Denies numbness, Denies weakness Psychiatric: Reports anxiety, Reports depression, Reports hopelessness, Reports suicidal ideation Endocrine: Denies fatigue, Denies weight change Past Medical History Past Medical History: No Reported History History of Any Multi-Drug Resistant Organisms: None Reported Past Surgical History: Cholecystectomy Past Anesthesia/Blood Transfusion Reactions: No Reported Reaction Past Psychological History: Anxiety, Depression Smoking Status: Former smoker Past Alcohol Use History: None Reported Additional Past Alcohol Use History / Comment(s): Patient only smoked briefly. She denies any medical marijuana, marijuana, street drug or alcohol use. She has 2 young children with no major medical problems. Past Drug Use History: None Reported - Past Family History Mother Family Medical History: No Reported History Additional Family Medical History / Comment(s): Mother is alive in her 60s with no major medical problems. Father Family Medical History: No Reported History Additional Family Medical History / Comment(s): Father is alive at age 56 with no major medical problems. Patient has 2 brothers and 1 sister with no major medical problems. Medications and Allergies Home Medications Medication Instructions Recorded Confirmed Type Levonorgestrel [Plan B One-Step] 1.5 mg PO ONCE 03/26/17 04/02/17 History Multivitamins, Thera [Multivitamin 1 tab PO DAILY 03/26/17 04/02/17 History (formulary)] Allergies Allergy/AdvReac Type Severity Reaction Status Date / Time codeine Allergy Rash/Hives Verified 04/02/17 20:04 Physical Exam Vitals: Vital Signs Temp Pulse Pulse Resp BP BP Pulse Ox 04/03/17 06:59 98.3 F 82 16 108/55 04/02/17 20:39 98.8 F 86 16 119/66 04/02/17 19:06 97.4 F L 89 16 118/75 96 04/02/17 10:49 98.2 F 76 16 131/62 92 L Gen: This is a 22-year-old -Macanese female. She is cooperative and appears to be in no acute distress. HEENT: Head is atraumatic, normocephalic. Pupils equal, round. Sclerae is anicteric. NECK: Supple. No JVD. No lymphadenopathy. No thyromegaly. Erythema to the oropharynx. LUNGS: Clear to auscultation. No wheezes or rhonchi. No intercostal retractions. HEART: Regular rate and rhythm. No murmur. ABDOMEN: Soft. Bowel sounds are present. No masses. No tenderness. EXTREMITIES: No pedal edema. No calf tenderness. Superficial laceration to the left wrist with no signs of infection. NEUROLOGICAL: Patient is awake, alert and oriented x3. Cranial nerves 2 through 12 are grossly intact. Cranial Nerve Examination - Cranial Nerves Cranial Nerve II- Optic: Intact Cranial Nerve III- Oculomotor: Intact Cranial Nerve IV- Trochlear: Intact Cranial Nerve V- Trigeminal: Intact Cranial Nerve - Abducens: Intact Cranial Nerve VII- Facial: Intact Cranial Nerve VIII- Auditory: Intact Cranial Nerve IX- Glossopharyngeal: Intact Cranial Nerve X- Vagus: Intact Cranial Nerve XI- Accessory: Intact Cranial Nerve XII- Hypoglossal: Intact Results CBC & Chem 7: 04/02/17 12:20 04/02/17 12:20 Labs: Abnormal Lab Results - Last 24 Hours (Table) 04/02/17 04/02/17 04/02/17 Range/Units 12:20 12:20 12:20 WBC 15.8 H (3.8-10.6) k/uL MCV 79.1 L (80.0-100.0) fL Neutrophils # 13.2 H (1.3-7.7) k/uL Chloride 108 H (98-107) mmol/L Creatinine 0.51 L (0.52-1.04) mg/dL Urine Protein Trace H (Negative) Urine Ketones Trace H (Negative) Assessment and Plan Plan: 1. Depression recurrent with suicidal ideation. Patient admitted to the mental health unit. Continue current plan of care per psychiatrist. 2. Acute pharyngitis. Patient will be placed on amoxicillin. 3. Self-induced laceration to the left forearm/wrist. Local wound care with Bactroban. Monitor for infection. Impression and plan of care have been directed as dictated by the signing physician. Laura Camacho nurse practitioner acting as scribe for signing physician.
[2017-04-03] MEDS: AMOXICILLIN 500 MG CAP PO SCH (15:38)
[2017-04-04] MEDS: AMOXICILLIN 500 MG CAP PO SCH ×4 (06:06→20:50)
[2017-04-04] MEDS: SERTRALINE 50 MG TAB PO SCH (09:38)
[2017-04-04] MEDS: MUPIROCIN 2% OINT 22 GM TUBE TOPICAL SCH ×2 (09:39→20:51)
[2017-04-04] MEDS: MULTIVITAMINS, THERA 1 EACH TAB PO SCH (11:56)
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
[2017-04-05 06:30] VITALS: BP 113/58; PULSE 87; TEMP 98.6
[2017-04-05] MEDS: AMOXICILLIN 500 MG CAP PO SCH ×2 (09:20→15:56)
[2017-04-05] MEDS: MUPIROCIN 2% OINT 22 GM TUBE TOPICAL SCH (09:25)
[2017-04-05] MEDS: SERTRALINE 50 MG TAB PO SCH (09:25)
[2017-04-05] MEDS: MULTIVITAMINS, THERA 1 EACH TAB PO SCH (13:05)
--- NOTE | 2017-04-08 10:08 | DS ---
DATE OF SERVICE 04/05/2017 DATE OF ADMISSION 04/02/2017 DATE OF DISCHARGE: 04/05/2017 ADMISSION AND DISCHARGE DIAGNOSES: 1. Major depression. 2. Six-month , currently breast feeding. HISTORY OF PRESENTING ILLNESS: The patient is a 22-year-old female. She was depressed. She had suicide thoughts. She reported taking a handful of tramadol 50 mg tablets. She was significantly distress over multiple issues. She was having nausea and vomiting , that is the reason she came to the hospital. She reported a lot of stress issues in relationships. She has a complicated relationship with the father of her 2 children. Also involved in the complication is an ex-girlfriend of the father of her 2 children. He was seeing the ex-girlfriend at the time that she became by him as did the ex-girlfriend. Her and the ex-girlfriend continue in a relationship, which developed relating to parenting issues for the 2 children. She has a daughter who is 6 months and a son who is 15 months old. Patient has not had a prior psychiatric hospitalization. She indicated that she has had half-way problems with depression with loss of motivation, energy and interest. She believes that she may have had some depression after her first child though not after her second. She has flashbacks to difficult childhood experiences though she denies sexual and physical abuse. She had been prescribed tramadol following gallbladder surgery in October, which was the source of the medications she took for an overdose. She denied substance abuse issues. She was admitted for further evaluation. PAST MEDICAL HISTORY AND PHYSICAL EXAM: As per medical consultation of Ms. Doug NP. COURSE OF HOSPITALIZATION: The patient was admitted for comprehensive medical, psychiatric and psychosocial evaluation. We engaged the patient in individual and group therapeutic activities. It is noted that earlier in the admission the patient tended to minimize any issue she was having with mood difficulties. She did not feel she needed to be in the hospital in spite of the fact that she acknowledged taken an overdose. She had quite limited insight into the idea that once she is in the hospital she is saying that she needs to be home for her children yet could not explain how she could say that on the one hand and on other hand just the day before she was making an effort to kill herself. She tended to present herself throughout her hospitalization in a superficially bright manner. She would show a little more seriousness when the focus was on some of the struggles she was having. It did appear that depression was a significant roasterman concern. I had contact with her children's manager advanced, Dr. Garcia, who indicated that Zoloft would be a reasonable medication for the patient given that she is breast feeding. I did share with the patient that information relating to use of any medications that potentially can pass into breast milk during breast feeding does have at least some potential for risks, although mainly theoretical. Patient was willing to start the medication. The plan was for the patient to get a hold of Dr. Garcia and set up a follow-up appointment for her daughter within 2 weeks so that she could again review issues about the status of breast feeding whether she is at a point where she potentially could stop breast feeding or on the other hand make a decision that she would feel safe with continuing an antidepressant while at the same continue to breast feed. Throughout her hospitalization, the patient slept well at night. She was social and interactive. She would attend groups. She was able to engage in discharge planning. CONDITION AT DISCHARGE: The patient was stable. Her mood was improved. She showed no indication of risk for self harm. She was motivated for follow through. RECOMMENDATIONS AND FOLLOWUP: The patient will be discharged to home. Discharge medications include: 1. Zoloft 50 mg a day as her only psychotropic medication. 2. She will also take amoxicillin 500 mg q.8 hours for 8 days and then discontinue. The amoxicillin is indicated for acute pharyngitis. She has a follow-up appointment at [facility] at 04/08 at 1: 50 p.m. She was referred back to Dr. Howard for primary care followup. She understands to set up a follow-up appointment with Dr. Garcia for consultation related to breast feeding within the next 2 weeks though she does have a follow- up appointment in place with Dr. Garcia in 1 month. JADE
== END 2017-04-05 15:51 | disposition home or self-care (01) | DRG 881 ==
LOC: EC 10:44 → 3MHU 18:35
PROVIDERS: ADMIT Psychiatry & Neurology Psychiatry; ATTEND Psychiatry & Neurology Psychiatry
DX: F32.9 Major depressive disorder, single episode, unspecified (principal); R45.851 Suicidal ideations; F41.9 Anxiety disorder, unspecified; S50.811A Abrasion of right forearm, initial encounter; S50.812A Abrasion of left forearm, initial encounter; Z87.891 Personal history of nicotine dependence
CPT/HCPCS: 36415; 80048; 80306; 80320; 81003; 81025; 82075; 83520; 84443; 85025; 93005; 96361; 96374; 99285

== ENCOUNTER 2017-07-06 18:03 | Emergency (ER) | payer OTHER ==
[2017-07-06 18:54] LABS: Appearance,Urine Clear (Clear); Bilirubin,Urine Negative (Negative); Glucose,Urine (UA) Negative (Negative); Ketones,Urine Negative (Negative); Leukocyte Esterase,Urine Negative (Negative); Nitrite,Urine Negative (Negative); PH, Urine 6.5 (5.0-8.0); Protein,Urine Trace (Negative); Specific Gravity,Urine 1.023 (1.001-1.035); UA Billing (MACRO vs. MICRO) CHEM; Urobilinogen,Urine <2.0 mg/dL (<2.0)
[2017-07-06] MEDS ORDERED: cefTRIAXone 250 MG VIAL IM STA (19:10)
[2017-07-06] MEDS ORDERED: AZITHROMYCIN 500 MG TAB PO STA (19:10)
[2017-07-06] MEDS ORDERED: valACYclovir HCL 1,000 MG TABLET PO STA (19:10)
--- NOTE | 2017-07-06 19:27 | ED ---
Skin/Abscess/FB HPI - General Chief complaint: Skin/Abscess/Foreign Body Stated complaint: poss hemmoroid Time Seen by Provider: 07/06/17 18:28 Source: patient, RN notes reviewed, old records reviewed Mode of arrival: ambulatory Limitations: no limitations - History of Present Illness Initial comments: Patient is a 22-year-old female presented emergency department with one week of her nail irritation. Patient reports that she noticed some areas of bumps, and blisters over the area. She reports is also noticed an area of her rectum she is concerned for possible hemorrhoid. Patient states that the area is very tender. She also relates that she's had a significant amount vaginal discharge. She is concerned for possible STDs, she reports that her poly-in the S partner tested positive for HPV. She does report that her way friend is in a poly-amorous relationship, and did test positive for chlamydia and gonorrhea approximately one month ago. - Related Data Previous Rx's Medication Instructions Recorded valACYclovir HCL [Valacyclovir] 1,000 mg PO Q12HR #20 tab 07/06/17 Allergies Allergy/AdvReac Type Severity Reaction Status Date / Time codeine Allergy Rash/Hives Verified 07/06/17 18:45 Review of Systems ROS Statement: Those systems with pertinent positive or pertinent negative responses have been documented in the HPI. ROS Other: All systems not noted in ROS Statement are negative. Past Medical History Past Medical History: No Reported History History of Any Multi-Drug Resistant Organisms: None Reported Past Surgical History: Cholecystectomy Past Anesthesia/Blood Transfusion Reactions: No Reported Reaction Past Psychological History: Anxiety, Depression Smoking Status: Current some day smoker Past Alcohol Use History: None Reported Past Drug Use History: None Reported - Past Family History Mother Family Medical History: No Reported History Additional Family Medical History / Comment(s): Mother is alive in her 60s with no major medical problems. Father Family Medical History: No Reported History Additional Family Medical History / Comment(s): Father is alive at age 56 with no major medical problems. Patient has 2 brothers and 1 sister with no major medical problems. General Exam - General Exam Comments Initial Comments: 22-year-old female. No acute distress. Limitations: no limitations General appearance: alert, in no apparent distress Head exam: Present: atraumatic, normocephalic, normal inspection Eye exam: Present: normal appearance, PERRL, EOMI. Absent: scleral icterus, conjunctival injection, periorbital swelling ENT exam: Present: normal exam, mucous membranes moist Neck exam: Present: normal inspection. Absent: tenderness, meningismus, lymphadenopathy Respiratory exam: Present: normal lung sounds bilaterally. Absent: respiratory distress, wheezes, rales, rhonchi, stridor Cardiovascular Exam: Present: regular rate, normal rhythm, normal heart sounds. Absent: systolic murmur, diastolic murmur, rubs, gallop, clicks GI/Abdominal exam: Present: soft, normal bowel sounds. Absent: distended, tenderness, guarding, rebound, rigid External exam: Present: lesions (Patient has approximately 10 small lesions over her labia majora, perineum.). Absent: normal external exam Speculum exam: Present: vaginal discharge (Patient has copious amount of yellow purulent vaginal discharge.), cervical discharge. Absent: normal speculum exam , erythema, vaginal bleeding By manual exam: Present: cervical motion tenderness (Middle cervical motion tenderness noted.). Absent: normal by manual exam Extremities exam: Present: normal inspection, full ROM, normal capillary refill. Absent: tenderness, pedal edema, joint swelling, calf tenderness Back exam: Present: normal inspection Neurological exam: Present: alert, oriented X3, CN II-XII intact Psychiatric exam: Present: normal affect, normal mood Skin exam: Present: warm, dry, intact, normal color. Absent: rash Course Vital Signs 07/06/17 07/06/17 18:03 20:00 Temperature 98.0 F 97.5 F L Pulse Rate 68 91 Respiratory 16 18 Rate Blood Pressure 127/81 130/91 O2 Sat by Pulse 100 97 Oximetry Medical Decision Making - Medical Decision Making Patient is a 22-year-old female chief complaint of Legion over her peroneal area. She's had this for a week. Just complains of vaginal discharge. Patient is in a polyamorous and less relationship. Her partners have his positive for STDs. She does have a copious amount of vaginal discharge, she did have some mild tenderness on exam.What is somehow to the patient for coming I really throw stuff in a bison. She also does have some blister like lesions over her labia, concern for possible herpes, herpes lab work was obtained. At the time also put the patient on valtrex. Been trichomonas test is negative. Just got close follow up with primary care provider and [facility]. Return parameters were discussed. - Lab Data Lab Results 07/06/17 07/06/17 07/06/17 Range/Units 18:44 18:44 18:50 Urine Color Yellow Urine Appearance Clear (Clear) Urine pH 6.5 (5.0-8.0) Ur Specific [place] 1.023 (1.001-1.035) Urine Protein Trace H (Negative) Urine Glucose (UA) Negative (Negative) Urine Ketones Negative (Negative) Urine Blood Negative (Negative) Urine Nitrite Negative (Negative) Urine Bilirubin Negative (Negative) Urine Urobilinogen <2.0 (<2.0) mg/dL Ur Leukocyte Esterase Negative (Negative) Urine HCG, Qual Not Detected (Not Detectd) Trichomonas Ag (Rapid) Negative (Negative) Disposition Clinical Impression: Herpes, Vaginal discharge Disposition: HOME SELF-CARE Condition: Good Instructions: Pelvic Inflammatory Disease (ED), Genital Herpes Simplex (ED) Additional Instructions: Patient advised to inform all sexual partners of possible exposure to STDs. Patient should take the Valtrex as directed. Recommended following up probably with your primary care provider as well as a [facility]. Return to the emergency department if any alarming signs or symptoms occur. Prescriptions: valACYclovir HCL [Valacyclovir] 1,000 mg PO Q12HR #20 tab Referrals: Mathieu Howard MD [Primary Care Provider] - 1-2 days Time of Disposition: 19:46
[2017-07-06 20:02] VITALS: BP 130/91; PULSE 91; RESP 18; TEMP 97.5
== END 2017-07-06 20:01 | disposition home or self-care (01) ==
LOC: EC 18:03
DX: B00.9 Herpesviral infection, unspecified (principal); N89.8 Other specified noninflammatory disorders of vagina; F17.200 Nicotine dependence, unspecified, uncomplicated; Z88.5 Allergy status to narcotic agent; Z90.49 Acquired absence of other specified parts of digestive tract
CPT/HCPCS: 36415; 87529; 86696; 86694; 86695; 87591; 87491; 81003; 81025; 87808; 86780; 87070; 87205; 99284; 96372; J0696

== ENCOUNTER 2017-08-24 10:21 | Emergency (ER) | payer OTHER ==
[2017-08-24 10:27] VITALS: RESP 20
[2017-08-24 11:20] LABS: Amphetamine Screen,Urine Not Detected (NotDetected); Barbiturate Screen,Urine Not Detected (NotDetected); Benzodiazepines Screen,Urine Not Detected (NotDetected); Cocaine Screen,Urine Not Detected (NotDetected); Methadone Screen, Urine Not Detected (NotDetected); Opiate Screen,Urine Not Detected (NotDetected); Oxycodone Screen, Urine Not Detected (NotDetected); Phencyclidine Screen,Urine Not Detected (NotDetected); Tricyclic Antidepressant,Urine Not Detected (NotDetected); Urn Cannabinoid Scrn Not Detected (NotDetected)
--- NOTE | 2017-08-24 11:23 | ED ---
Psych HPI - General Chief Complaint: Psychiatric Symptoms Stated Complaint: Mental health Time Seen by Provider: 08/24/17 10:21 Source: patient, police, RN notes reviewed Mode of arrival: ambulatory - History of Present Illness Initial Comments: This is a 23-year-old female history depression and prior history of suicidal attempt who is brought in by police with a petition. Patient denies suicidal thought or ideation home was alk phos or ideation. She states that she was awakened by police who brought her in. She states she has had contact with [facility] yesterday and does have a case that is open. She is not sure why she is here. Per the petition she is supposedly been suicidal or making threats thereof. Patient denies alcohol or drugs or other plans at this time MD Complaint: other - Related Data Home Medications Medication Instructions Recorded Confirmed No Known Home Medications [No 08/24/17 08/24/17 Known Home Medications] Allergies Allergy/AdvReac Type Severity Reaction Status Date / Time codeine Allergy Rash/Hives Verified 08/24/17 11:19 Review of Systems ROS Statement: Those systems with pertinent positive or pertinent negative responses have been documented in the HPI. ROS Other: All systems not noted in ROS Statement are negative. Past Medical History Past Medical History: No Reported History History of Any Multi-Drug Resistant Organisms: None Reported Past Surgical History: Cholecystectomy Past Anesthesia/Blood Transfusion Reactions: No Reported Reaction Past Psychological History: Anxiety, Depression Smoking Status: Current some day smoker Past Alcohol Use History: None Reported Past Drug Use History: None Reported - Past Family History Mother Family Medical History: No Reported History Additional Family Medical History / Comment(s): Mother is alive in her 60s with no major medical problems. Father Family Medical History: No Reported History Additional Family Medical History / Comment(s): Father is alive at age 56 with no major medical problems. Patient has 2 brothers and 1 sister with no major medical problems. General Exam - General Exam Comments Initial Comments: This is a well-developed well-nourished awake alert oriented X 3 female Limitations: no limitations General appearance: alert, in no apparent distress Head exam: Present: atraumatic, normocephalic, normal inspection Eye exam: Present: normal appearance, PERRL, EOMI. Absent: scleral icterus, conjunctival injection, periorbital swelling ENT exam: Present: normal exam, mucous membranes moist Neck exam: Present: normal inspection. Absent: tenderness, meningismus, lymphadenopathy Respiratory exam: Present: normal lung sounds bilaterally. Absent: respiratory distress, wheezes, rales, rhonchi, stridor Cardiovascular Exam: Present: regular rate, normal rhythm, normal heart sounds. Absent: systolic murmur, diastolic murmur, rubs, gallop, clicks GI/Abdominal exam: Present: soft, normal bowel sounds. Absent: distended, tenderness, guarding, rebound, rigid Extremities exam: Present: normal inspection, full ROM, normal capillary refill. Absent: tenderness, pedal edema, joint swelling, calf tenderness Back exam: Present: normal inspection Neurological exam: Present: alert, oriented X3, CN II-XII intact Psychiatric exam: Present: normal affect, normal mood Skin exam: Present: warm, dry, intact, normal color. Absent: rash Course Vital Signs 08/24/17 10:24 Temperature 97.8 F Pulse Rate 99 Respiratory 20 Rate Blood Pressure 122/72 O2 Sat by Pulse 99 Oximetry Medical Decision Making - Medical Decision Making The patient was evaluated by [facility] and found not to be suicidal or homicidal wrist herself or anyone else follow-up in severity planned outpatient. - Lab Data Lab Results 08/24/17 08/24/17 Range/Units 10:26 10:26 Urine HCG, Qual Not Detected (Not Detectd) Urine Opiates Screen Not Detected (NotDetected) Ur Oxycodone Screen Not Detected (NotDetected) Urine Methadone Screen Not Detected (NotDetected) Ur Propoxyphene Screen Not Detected (NotDetected) Ur Barbiturates Screen Not Detected (NotDetected) U Tricyclic Antidepress Not Detected (NotDetected) Ur Phencyclidine Scrn Not Detected (NotDetected) Ur Amphetamines Screen Not Detected (NotDetected) U Methamphetamines Scrn Not Detected (NotDetected) U Benzodiazepines Scrn Not Detected (NotDetected) Urine Cocaine Screen Not Detected (NotDetected) U Marijuana (THC) Screen Not Detected (NotDetected) Disposition Clinical Impression: History of depression, Feared condition not demonstrated Disposition: HOME SELF-CARE Condition: Good Instructions: Depression (ED) Referrals: Mathieu Howard MD [Primary Care Provider] - 1-2 days
[2017-08-24 13:57] VITALS: BP 121/66; PULSE 80; TEMP 98.2
== END 2017-08-24 13:57 | disposition home or self-care (01) ==
LOC: EC 10:21
DX: Z71.1 Person with feared health complaint in whom no diagnosis is made (principal); F32.9 Major depressive disorder, single episode, unspecified; F17.200 Nicotine dependence, unspecified, uncomplicated; Z88.5 Allergy status to narcotic agent
CPT/HCPCS: 80306; 81025; 82075; 99284

== ENCOUNTER 2017-11-04 11:42 | Emergency (ER) | payer OTHER ==
[2017-11-04 12:11] VITALS: RESP 18; TEMP 98.3
[2017-11-04] MEDS ORDERED: SODIUM CHLORIDE 0.9% 1,000 ML IV ONE (13:19)
[2017-11-04] MEDS ORDERED: ONDANSETRON 4 MG/2 ML VIAL IVP STA (13:20)
[2017-11-04] MEDS ORDERED: FAMOTIDINE 20 MG/2 ML VIAL IV STA (13:21)
--- NOTE | 2017-11-04 13:21 | ED ---
Nausea/Vomiting/Diarrhea HPI - General Chief complaint: Nausea/Vomiting/Diarrhea Stated complaint: NVD Time Seen by Provider: 11/04/17 13:16 Source: patient, RN notes reviewed Mode of arrival: ambulatory Limitations: no limitations - History of Present Illness Initial comments: This a 22-year-old female presents emergency Department chief complaint nausea vomiting diarrhea. Patient states she initially had symptoms on Saturday yesterday but symptoms returned again today. She had slight abdominal cramping and has reflux though she has no severe localized abdominal pain. Denies any dysuria or hematuria. Denies any vaginal bleeding vaginal discharge. She states her prior cholecystectomy. She states her kids and also has had some her symptoms. Patient denies any fever today but states that she felt like she had a fever today. Patient has a cough, chest congestion, ear pain, sore throat. - Related Data Home Medications Medication Instructions Recorded Confirmed valACYclovir HCL [Valtrex] 1,000 mg PO DAILY 11/04/17 11/04/17 Previous Rx's Medication Instructions Recorded Ondansetron Odt [Zofran Odt] 4 mg PO Q8HR PRN #10 tab 11/04/17 Allergies Allergy/AdvReac Type Severity Reaction Status Date / Time codeine Allergy Rash/Hives Verified 11/04/17 13:36 Review of Systems ROS Statement: Those systems with pertinent positive or pertinent negative responses have been documented in the HPI. ROS Other: All systems not noted in ROS Statement are negative. 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 Father Family Medical History: No Reported History Additional Family Medical History / Comment(s): Father is alive at age 56 with no major medical problems. Patient has 2 brothers and 1 sister with no major medical problems. General Exam Limitations: no limitations General appearance: alert, in no apparent distress Head exam: Present: atraumatic, normocephalic, normal inspection Eye exam: Present: normal appearance, PERRL, EOMI. Absent: scleral icterus, conjunctival injection, periorbital swelling ENT exam: Present: normal exam, normal oropharynx, mucous membranes moist Respiratory exam: Present: normal lung sounds bilaterally. Absent: respiratory distress, wheezes, rales, rhonchi, stridor Cardiovascular Exam: Present: regular rate, normal rhythm, normal heart sounds. Absent: systolic murmur, diastolic murmur, rubs, gallop, clicks GI/Abdominal exam: Present: soft, normal bowel sounds. Absent: distended, tenderness, guarding, rebound, rigid Back exam: Absent: CVA tenderness (R), CVA tenderness (L) Skin exam: Present: warm, dry, intact, normal color. Absent: rash Course Vital Signs 11/04/17 12:08 Temperature 98.3 F Pulse Rate 88 Respiratory 18 Rate Blood Pressure 137/80 O2 Sat by Pulse 97 Oximetry Medical Decision Making - Medical Decision Making 22-year-old female presented unresponsive with chief complaint of nausea vomiting diarrhea. Patient symptoms are consistent with conjunctivitis. Patient's laboratory essentially unremarkable. She felt improved with antiemetics and hydration. Patient discharged with Zofran return parameters were discussed. - Lab Data Result diagrams: 11/04/17 13:25 11/04/17 13:25 Lab Results 11/04/17 11/04/17 11/04/17 Range/Units 13:25 13:25 13:25 WBC 11.7 H (3.8-10.6) k/uL RBC 5.84 H (3.80-5.40) m/uL Hgb 16.7 H (11.4-16.0) gm/dL Hct 45.7 (34.0-46.0) % MCV 78.2 L (80.0-100.0) fL MCH 28.6 (25.0-35.0) pg MCHC 36.5 (31.0-37.0) g/dL RDW 13.3 (11.5-15.5) % Plt Count 351 (150-450) k/uL Neutrophils % 77 % Lymphocytes % 15 % Monocytes % 5 % Eosinophils % 2 % Basophils % 0 % Neutrophils # 9.1 H (1.3-7.7) k/uL Lymphocytes # 1.8 (1.0-4.8) k/uL Monocytes # 0.6 (0-1.0) k/uL Eosinophils # 0.2 (0-0.7) k/uL Basophils # 0.0 (0-0.2) k/uL Sodium 146 H (137-145) mmol/L Potassium 3.7 (3.5-5.1) mmol/L Chloride 106 (98-107) mmol/L Carbon Dioxide 25 (22-30) mmol/L Anion Gap 15 mmol/L BUN 12 (7-17) mg/dL Creatinine 0.63 (0.52-1.04) mg/dL Est GFR (CKD-EPI)AfAm >90 (>60 ml/min/1.73 sqM) Est GFR (CKD-EPI)NonAf >90 (>60 ml/min/1.73 sqM) Glucose 97 (74-99) mg/dL Calcium 9.6 (8.4-10.2) mg/dL Total Bilirubin 0.5 (0.2-1.3) mg/dL AST 40 H (14-36) U/L ALT 70 H (9-52) U/L Alkaline Phosphatase 80 (38-126) U/L Total Protein 8.2 (6.3-8.2) g/dL Albumin 4.7 (3.5-5.0) g/dL Amylase 57 (30-110) U/L Lipase 59 (23-300) U/L Urine Color Yellow Urine Appearance Clear (Clear) Urine pH 6.0 (5.0-8.0) Ur Specific [place] 1.026 (1.001-1.035) Urine Protein 1+ H (Negative) Urine Glucose (UA) Negative (Negative) Urine Ketones 1+ H (Negative) Urine Blood Negative (Negative) Urine Nitrite Negative (Negative) Urine Bilirubin Negative (Negative) Urine Urobilinogen <2.0 (<2.0) mg/dL Ur Leukocyte Esterase Trace H (Negative) Urine WBC 3 (0-5) /hpf Ur Squamous Epith Cells 2 (0-4) /hpf Urine Mucus Occasional H (None) /hpf Urine HCG, Qual (Not Detectd) 11/04/17 Range/Units 13:25 WBC (3.8-10.6) k/uL RBC (3.80-5.40) m/uL Hgb (11.4-16.0) gm/dL Hct (34.0-46.0) % MCV (80.0-100.0) fL MCH (25.0-35.0) pg MCHC (31.0-37.0) g/dL RDW (11.5-15.5) % Plt Count (150-450) k/uL Neutrophils % % Lymphocytes % % Monocytes % % Eosinophils % % Basophils % % Neutrophils # (1.3-7.7) k/uL Lymphocytes # (1.0-4.8) k/uL Monocytes # (0-1.0) k/uL Eosinophils # (0-0.7) k/uL Basophils # (0-0.2) k/uL Sodium (137-145) mmol/L Potassium (3.5-5.1) mmol/L Chloride (98-107) mmol/L Carbon Dioxide (22-30) mmol/L Anion Gap mmol/L BUN (7-17) mg/dL Creatinine (0.52-1.04) mg/dL Est GFR (CKD-EPI)AfAm (>60 ml/min/1.73 sqM) Est GFR (CKD-EPI)NonAf (>60 ml/min/1.73 sqM) Glucose (74-99) mg/dL Calcium (8.4-10.2) mg/dL Total Bilirubin (0.2-1.3) mg/dL AST (14-36) U/L ALT (9-52) U/L Alkaline Phosphatase (38-126) U/L Total Protein (6.3-8.2) g/dL Albumin (3.5-5.0) g/dL Amylase (30-110) U/L Lipase (23-300) U/L Urine Color Urine Appearance (Clear) Urine pH (5.0-8.0) Ur Specific [place] (1.001-1.035) Urine Protein (Negative) Urine Glucose (UA) (Negative) Urine Ketones (Negative) Urine Blood (Negative) Urine Nitrite (Negative) Urine Bilirubin (Negative) Urine Urobilinogen (<2.0) mg/dL Ur Leukocyte Esterase (Negative) Urine WBC (0-5) /hpf Ur Squamous Epith Cells (0-4) /hpf Urine Mucus (None) /hpf Urine HCG, Qual Not Detected (Not Detectd) Disposition Clinical Impression: Gastroenteritis Disposition: HOME SELF-CARE Condition: Stable Instructions: Acute Nausea and Vomiting (ED) Additional Instructions: You did receive IV Zofran and Reglan along with normal saline in the emergency department.Please return to the Emergency Department if symptoms worsen or any other concerns. Prescriptions: Ondansetron Odt [Zofran Odt] 4 mg PO Q8HR PRN #10 tab PRN Reason: Nausea Referrals: Mathieu Howard MD [Primary Care Provider] - 1-2 days Time of Disposition: 14:36
[2017-11-04 13:53] LABS: Basophils % (A) 0 %; Eosinophils # (A) 0.2 k/uL (0-0.7); Eosinophils % (A) 2 %; HCT 45.7 % (34.0-46.0); HGB 16.7 gm/dL (11.4-16.0); Lymphocytes # (A) 1.8 k/uL (1.0-4.8); Lymphocytes % (A) 15 %; MCH 28.6 pg (25.0-35.0); MCHC 36.5 g/dL (31.0-37.0); MCV 78.2 fL (80.0-100.0); Mean Platelet Volume 6.8; Monocytes # (A) 0.6 k/uL (0-1.0); Monocytes % (A) 5 %; Neutrophils # (A) 9.1 k/uL (1.3-7.7); Neutrophils % (A) 77 %; Platelet Count 351 k/uL (150-450); RBC 5.84 m/uL (3.80-5.40); RDW 13.3 % (11.5-15.5); WBC 11.7 k/uL (3.8-10.6)
[2017-11-04 13:55] LABS: Appearance,Urine Clear (Clear); Bilirubin,Urine Negative (Negative); Blood,Urine Negative (Negative); Color,Urine Yellow; Glucose,Urine (UA) Negative (Negative); Ketones,Urine 1+ (Negative); Leukocyte Esterase,Urine Trace (Negative); Mucus,Urine Occasional /hpf; Nitrite,Urine Negative (Negative); Protein,Urine 1+ (Negative); Specific Gravity,Urine 1.026 (1.001-1.035); Squamous Epithelial Cell,Urine 2 /hpf (0-4); Urobilinogen,Urine <2.0 mg/dL (<2.0); WBC,Urine 3 /hpf (0-5)
[2017-11-04 14:04] LABS: ALT 70 U/L (9-52); AST 40 U/L (14-36); Albumin 4.7 g/dL (3.5-5.0); Alkaline Phosphatase 80 U/L (38-126); Amylase 57 U/L (30-110); Anion Gap 15 mmol/L; Blood Urea Nitrogen 12 mg/dL (7-17); Calcium 9.6 mg/dL (8.4-10.2); Carbon Dioxide 25 mmol/L (22-30); Chloride 106 mmol/L (98-107); Glucose 97 mg/dL (74-99); Lipase 59 U/L (23-300); Potassium 3.7 mmol/L (3.5-5.1); Sodium 146 mmol/L (137-145); Total Bilirubin 0.5 mg/dL (0.2-1.3); Total Protein 8.2 g/dL (6.3-8.2)
[2017-11-04] MEDS ORDERED: METOCLOPRAMIDE 5 MG/ML 2 ML VIAL IVP STA (14:14)
[2017-11-04 15:24] VITALS: BP 100/52; PULSE 85
== END 2017-11-04 15:24 | disposition home or self-care (01) ==
LOC: EC 11:42
DX: K52.9 Noninfective gastroenteritis and colitis, unspecified (principal); F17.200 Nicotine dependence, unspecified, uncomplicated; Z90.49 Acquired absence of other specified parts of digestive tract; Z88.5 Allergy status to narcotic agent; Z79.899 Other long term (current) drug therapy
CPT/HCPCS: 99284; 96374; 96375 ×2; 96361; 36415; 80053; 82150; 83690; 85025; 81001; 81025; J2765; J2405

== ENCOUNTER 2018-05-30 15:31 | Emergency (ER) | payer OTHER ==
[2018-05-30 15:54] VITALS: TEMP 98.2
[2018-05-30] MEDS ORDERED: METOCLOPRAMIDE 5 MG/ML 2 ML VIAL IVP STA (16:52)
[2018-05-30] MEDS ORDERED: SODIUM CHLORIDE 0.9% 1,000 ML IV STA (16:52)
--- NOTE | 2018-05-30 17:21 | ED ---
General Adult HPI - General Chief complaint: Vaginal Bleeding Stated complaint: cramping;18 weeks Time Seen by Provider: 05/30/18 16:43 Source: patient, RN notes reviewed Mode of arrival: ambulatory Limitations: no limitations - History of Present Illness Initial comments: Patient is a G3, P2 23-year-old female presenting to the emergency room today with a chief complaint of nausea vomiting, abdominal cramping, vaginal spotting over the last 3 weeks. Patient does admit that she saw her [facility] this past Saturday just 4 days ago. She does admit that she's had some increased cramping on the size of the abdomen. She states she still having nausea and vomiting. States this morning she saw some spotting seem to be a little heavier than what she's had over the past few weeks. Patient denies any other complaints or symptoms at this time. Patient denies any recent fever, chills, shortness of breath, chest pain, back pain, numbness or tingling, dysuria or hematuria, constipation or diarrhea, headaches or visual changes, or any other complaints. - Related Data Home Medications Medication Instructions Recorded Confirmed Metoclopramide [Reglan] 10 mg PO QID PRN 05/30/18 05/30/18 Trx-Srtc-Jfvnd Acid 1 cap PO DAILY 05/30/18 05/30/18 [-U Capsule (formulary)] Previous Rx's Medication Instructions Recorded Nitrofurantoin Monohyd/M-Cryst 100 mg PO Q12HR #14 cap 05/30/18 [Macrobid] Allergies Allergy/AdvReac Type Severity Reaction Status Date / Time codeine Allergy Rash/Hives Verified 05/30/18 16:49 Review of Systems ROS Statement: Those systems with pertinent positive or pertinent negative responses have been documented in the HPI. ROS Other: All systems not noted in ROS Statement are negative. 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 Father Family Medical History: No Reported History Additional Family Medical History / Comment(s): Father is alive at age 56 with no major medical problems. Patient has 2 brothers and 1 sister with no major medical problems. General Exam - General Exam Comments Initial Comments: General: The patient is awake and alert, in no distress, and does not appear acutely ill. Eye: Extra-ocular movements are intact. No nystagmus. There is normal conjunctiva bilaterally. No signs of icterus. Ears, nose, mouth and throat: There are moist mucous membranes and no oral lesions. Neck: The neck is supple, there is no tenderness or JVD. Cardiovascular: There is a regular rate and rhythm. No murmur, rub or gallop is appreciated. Respiratory: Lungs are clear to auscultation, respirations are non-labored, breath sounds are equal. No wheezes, stridor, rales, or rhonchi. Gastrointestinal: Admits TO palpation. Patient does have mild tenderness in the lower abdomen. No rebound, guarding or CVA tenderness. Musculoskeletal: Normal ROM, no tenderness. Sensation intact. Neurological: A&O x 3. CN II-XII intact, There are no obvious motor or sensory deficits. Coordination appears grossly intact. Speech is normal. Skin: Skin is warm and dry and no rashes or lesions are noted. Psychiatric: Cooperative, appropriate mood & affect, normal judgment. Limitations: no limitations Course Vital Signs 05/30/18 15:47 Temperature 98.2 F Pulse Rate 98 Respiratory 18 Rate Blood Pressure 114/76 O2 Sat by Pulse 97 Oximetry Medical Decision Making - Medical Decision Making Patient reexamined at this time shows no signs of distress. She is resting comfortably. Patient's heart tones 139. Patient's labs reviewed does show 12,000 white count. Patient had multiple episodes of nausea vomiting. Patient does have some vaginal spotting. She has seen her OB. Did have a ultrasound of this showing viable IUP. Patient Rh+. Patient's resting comfortably at this time. Symptoms improved. She does have Reglan at home that she can use for nausea. Urinalysis reviewed and does show possible urinary tract infection. Culture will be added and patient will be started on antibiotics of Macrobid. She is advised follow-up with the [facility] over the next 2 days. Advised return if symptoms increase or worsen or fail concerns for any other concerns - Lab Data Result diagrams: 05/30/18 17:15 05/30/18 17:15 Lab Results 05/30/18 05/30/18 05/30/18 Range/Units 17:00 17:15 17:15 WBC 12.6 H (3.8-10.6) k/uL RBC 4.86 (3.80-5.40) m/uL Hgb 13.9 (11.4-16.0) gm/dL Hct 39.7 (34.0-46.0) % MCV 81.6 (80.0-100.0) fL MCH 28.6 (25.0-35.0) pg MCHC 35.0 (31.0-37.0) g/dL RDW 13.7 (11.5-15.5) % Plt Count 339 (150-450) k/uL Neutrophils % 72 % Lymphocytes % 20 % Monocytes % 4 % Eosinophils % 2 % Basophils % 1 % Neutrophils # 9.1 H (1.3-7.7) k/uL Lymphocytes # 2.6 (1.0-4.8) k/uL Monocytes # 0.5 (0-1.0) k/uL Eosinophils # 0.3 (0-0.7) k/uL Basophils # 0.1 (0-0.2) k/uL Sodium 137 (137-145) mmol/L Potassium 4.7 (3.5-5.1) mmol/L Chloride 108 H (98-107) mmol/L Carbon Dioxide 22 (22-30) mmol/L Anion Gap 7 mmol/L BUN 6 L (7-17) mg/dL Creatinine 0.50 L (0.52-1.04) mg/dL Est GFR (CKD-EPI)AfAm >90 (>60 ml/min/1.73 sqM) Est GFR (CKD-EPI)NonAf >90 (>60 ml/min/1.73 sqM) Glucose 85 (74-99) mg/dL Calcium 9.6 (8.4-10.2) mg/dL Total Bilirubin 0.7 (0.2-1.3) mg/dL AST 45 H (14-36) U/L ALT 32 (9-52) U/L Alkaline Phosphatase 64 (38-126) U/L Total Protein 7.9 (6.3-8.2) g/dL Albumin 4.2 (3.5-5.0) g/dL Urine Color Yellow Urine Appearance Cloudy H (Clear) Urine pH 6.5 (5.0-8.0) Ur Specific [place] 1.023 (1.001-1.035) Urine Protein Trace H (Negative) Urine Glucose (UA) Negative (Negative) Urine Ketones Negative (Negative) Urine Blood Negative (Negative) Urine Nitrite Negative (Negative) Urine Bilirubin Negative (Negative) Urine Urobilinogen <2.0 (<2.0) mg/dL Ur Leukocyte Esterase Large H (Negative) Urine RBC 5 (0-5) /hpf Urine WBC 9 H (0-5) /hpf Ur Squamous Epith Cells 36 H (0-4) /hpf Urine Bacteria Occasional H (None) /hpf Urine Mucus Occasional H (None) /hpf Blood Type Blood Type Recheck 05/30/18 Range/Units 17:15 WBC (3.8-10.6) k/uL RBC (3.80-5.40) m/uL Hgb (11.4-16.0) gm/dL Hct (34.0-46.0) % MCV (80.0-100.0) fL MCH (25.0-35.0) pg MCHC (31.0-37.0) g/dL RDW (11.5-15.5) % Plt Count (150-450) k/uL Neutrophils % % Lymphocytes % % Monocytes % % Eosinophils % % Basophils % % Neutrophils # (1.3-7.7) k/uL Lymphocytes # (1.0-4.8) k/uL Monocytes # (0-1.0) k/uL Eosinophils # (0-0.7) k/uL Basophils # (0-0.2) k/uL Sodium (137-145) mmol/L Potassium (3.5-5.1) mmol/L Chloride (98-107) mmol/L Carbon Dioxide (22-30) mmol/L Anion Gap mmol/L BUN (7-17) mg/dL Creatinine (0.52-1.04) mg/dL Est GFR (CKD-EPI)AfAm (>60 ml/min/1.73 sqM) Est GFR (CKD-EPI)NonAf (>60 ml/min/1.73 sqM) Glucose (74-99) mg/dL Calcium (8.4-10.2) mg/dL Total Bilirubin (0.2-1.3) mg/dL AST (14-36) U/L ALT (9-52) U/L Alkaline Phosphatase (38-126) U/L Total Protein (6.3-8.2) g/dL Albumin (3.5-5.0) g/dL Urine Color Urine Appearance (Clear) Urine pH (5.0-8.0) Ur Specific [place] (1.001-1.035) Urine Protein (Negative) Urine Glucose (UA) (Negative) Urine Ketones (Negative) Urine Blood (Negative) Urine Nitrite (Negative) Urine Bilirubin (Negative) Urine Urobilinogen (<2.0) mg/dL Ur Leukocyte Esterase (Negative) Urine RBC (0-5) /hpf Urine WBC (0-5) /hpf Ur Squamous Epith Cells (0-4) /hpf Urine Bacteria (None) /hpf Urine Mucus (None) /hpf Blood Type A Positive Blood Type Recheck No Disposition Clinical Impression: UTI (urinary tract infection), Abdominal pain in Disposition: HOME SELF-CARE Condition: Good Instructions: Abdominal Pain in (ED) Additional Instructions: Please use medication as discussed. Please follow-up with [facility]/family doctor in the next 2 days. Please return to emergency room if the symptoms increase or worsen or for any other concerns. Prescriptions: Nitrofurantoin Monohyd/M-Cryst [Macrobid] 100 mg PO Q12HR #14 cap Is patient prescribed a controlled substance at d/c from ED?: No Referrals: Mathieu Howard MD [Primary Care Provider] - 1-2 days Marybeth Devlin MD [STAFF PHYSICIAN] - 1-2 days Time of Disposition: 18:34
[2018-05-30 17:41] LABS: Appearance,Urine Cloudy (Clear); Bacteria,Urine Occasional /hpf; Bilirubin,Urine Negative (Negative); Blood,Urine Negative (Negative); Color,Urine Yellow; Glucose,Urine (UA) Negative (Negative); Ketones,Urine Negative (Negative); Leukocyte Esterase,Urine Large (Negative); Mucus,Urine Occasional /hpf; Nitrite,Urine Negative (Negative); PH, Urine 6.5 (5.0-8.0); Protein,Urine Trace (Negative); RBC,Urine 5 /hpf (0-5); Specific Gravity,Urine 1.023 (1.001-1.035); Squamous Epithelial Cell,Urine 36 /hpf (0-4); Urobilinogen,Urine <2.0 mg/dL (<2.0); WBC,Urine 9 /hpf (0-5)
[2018-05-30 17:49] LABS: Basophils # (A) 0.1 k/uL (0-0.2); Basophils % (A) 1 %; Eosinophils # (A) 0.3 k/uL (0-0.7); Eosinophils % (A) 2 %; HCT 39.7 % (34.0-46.0); HGB 13.9 gm/dL (11.4-16.0); Lymphocytes # (A) 2.6 k/uL (1.0-4.8); Lymphocytes % (A) 20 %; MCH 28.6 pg (25.0-35.0); MCV 81.6 fL (80.0-100.0); Mean Platelet Volume 7.6; Monocytes # (A) 0.5 k/uL (0-1.0); Monocytes % (A) 4 %; Neutrophils # (A) 9.1 k/uL (1.3-7.7); Neutrophils % (A) 72 %; Platelet Count 339 k/uL (150-450); RBC 4.86 m/uL (3.80-5.40); RDW 13.7 % (11.5-15.5); WBC 12.6 k/uL (3.8-10.6)
[2018-05-30 17:57] LABS: ALT 32 U/L (9-52); AST 45 U/L (14-36); Albumin 4.2 g/dL (3.5-5.0); Alkaline Phosphatase 64 U/L (38-126); Anion Gap 7 mmol/L; Blood Urea Nitrogen 6 mg/dL (7-17); Calcium 9.6 mg/dL (8.4-10.2); Carbon Dioxide 22 mmol/L (22-30); Chloride 108 mmol/L (98-107); Glucose 85 mg/dL (74-99); Potassium 4.7 mmol/L (3.5-5.1); Sodium 137 mmol/L (137-145); Total Bilirubin 0.7 mg/dL (0.2-1.3); Total Protein 7.9 g/dL (6.3-8.2)
[2018-05-30 18:46] VITALS: BP 121/72; PULSE 81; RESP 16
[2018-05-30 18:50] LABS: HCG,Quantitative Serum 16577.5 mIU/mL
== END 2018-05-30 18:49 | disposition home or self-care (01) ==
LOC: EC 15:31
DX: O23.42 Unspecified infection of urinary tract in pregnancy, second trimester (principal); O26.892 Other specified pregnancy related conditions, second trimester; R10.9 Unspecified abdominal pain; O21.9 Vomiting of pregnancy, unspecified; Z88.5 Allergy status to narcotic agent; Z90.49 Acquired absence of other specified parts of digestive tract; Z3A.18 18 weeks gestation of pregnancy; Z53.29 Procedure and treatment not carried out because of patient's decision for other reasons
CPT/HCPCS: 36415; 80053; 81001; 84702; 85025; 86900; 86901; 96360; 99284

== ENCOUNTER 2018-08-16 00:04 | Emergency (ER) | payer OTHER ==
[2018-08-16] MEDS ORDERED: SODIUM CHLORIDE 0.9% 1,000 ML IV STA (00:15)
[2018-08-16] MEDS ORDERED: ACETAMINOPHEN TAB 325 MG TAB PO STA (00:32)
[2018-08-16] MEDS ORDERED: predniSONE 20 MG TAB PO STA (00:32)
--- NOTE | 2018-08-16 00:43 | ED ---
Chest Pain HPI - General Chief Complaint: Chest Pain Stated Complaint: Chest Pain Time Seen by Provider: 08/16/18 00:14 Source: patient Mode of arrival: ambulatory Limitations: no limitations - History of Present Illness Initial Comments: Maggie is a pleasant 23-year-old female currently 30 weeks who presents to the emergency department today for evaluation of chest pain. Patient reports that she's been having some generalized discomfort secondary to being in the third trimester of her . 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 Patient reports that this evening she took a warm shower and just felt overwhelmed by the pulling sensation in her rib cage. She describes the pain as a sharp pain all the way down the center of her breast bone. It's worse with movement, lifting or pressing on her ribs. Patient reports she is felt pretty tired and run down and she does have 2 small children at home and is currently and works full-time. She reports that she called her mother did discuss this discomfort, she wasn't experiencing any nausea, vomiting or acid reflux-like pains or mother advised her to come the ER for evaluation. Patient denies any history of DVT or PE. She denies any lower extremity swelling. She denies any shortness of breath or pleuritic chest pain. Denies any previous cardiac history. - Related Data Home Medications Medication Instructions Recorded Confirmed Metoclopramide [Reglan] 10 mg PO QID PRN 05/30/18 05/30/18 Rlc-Sumo-Pysts Acid 1 cap PO DAILY 05/30/18 05/30/18 [-U Capsule (formulary)] Previous Rx's Medication Instructions Recorded Nitrofurantoin Monohyd/M-Cryst 100 mg PO Q12HR #14 cap 05/30/18 [Macrobid] Acetaminophen [Tylenol] 500 mg PO Q4-6H PRN #30 tab 08/16/18 predniSONE [Deltasone] 40 mg PO DAILY 5 Days #10 tablet 08/16/18 Allergies Allergy/AdvReac Type Severity Reaction Status Date / Time codeine Allergy Rash/Hives Verified 08/16/18 00:12 Review of Systems ROS Statement: Those systems with pertinent positive or pertinent negative responses have been documented in the HPI. ROS Other: All systems not noted in ROS Statement are negative. EKG Findings - EKG Comments: EKG Findings:: EKG obtained at 12:24 AM, rate is 94 rhythm is sinus, there is a normal axis there are normal intervals there's no acute ST elevations or depressions no evidence of acute ischemia or infarction. No evidence of acute right heart strain. 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 Father Family Medical History: No Reported History Additional Family Medical History / Comment(s): Father is alive at age 56 with no major medical problems. Patient has 2 brothers and 1 sister with no major medical problems. General Exam Limitations: no limitations Course Vital Signs 08/16/18 08/16/18 08/16/18 00:10 00:51 01:50 Temperature 97.9 F Pulse Rate 94 85 Pulse Rate [ 98 Home Economist ] Respiratory 18 17 Rate Blood Pressure 104/69 111/63 O2 Sat by Pulse 98 100 Oximetry 08/16/18 01:59 Temperature 98.1 F Pulse Rate Pulse Rate [ Home Economist ] Respiratory Rate Blood Pressure O2 Sat by Pulse Oximetry Chest Pain MDM - [facility] The patient was seen and evaluated history was obtained from the patient History and physical exam are concerning for a musculoskeletal chest wall pain. I have a very high suspicion for costochondritis as the patient has discomfort with palpation of the costochondral junction as well as pain with lifting movements. Patient does report that she has had some weight gain and significant breast engorgement with this which she thinks is contributing to her chest wall discomfort. Labs and imaging ordered due to patient cannot take NSAIDs however Tylenol and steroids aren't appropriate alternative for inflammatory condition Labs and no significant abnormalities Troponin and BNP not elevated Chest x-ray with no acute pathology Results were discussed with patient who feels reassured. I did offer to give the patient a work note to take 2 days off work to relax. However given that the patient has 2 small children at home she states that staying home and caring for them would be just as much work and she cannot really afford to miss work and missed the money so she would prefer just to continue to work through this. I will prescribe the patient Tylenol and steroids for anti-inflammatory properties. Return parameters were discussed her questions pertaining care were answered patient was discharged home in stable condition. Disposition Clinical Impression: Atypical chest pain, Costalchondritis Disposition: HOME SELF-CARE Condition: Good Instructions: Chest Pain (ED), Costochondritis (ED) Prescriptions: Acetaminophen [Tylenol] 500 mg PO Q4-6H PRN #30 tab PRN Reason: Pain predniSONE [Deltasone] 40 mg PO DAILY 5 Days #10 tablet Is patient prescribed a controlled substance at d/c from ED?: No Referrals: Mathieu Howard MD [Primary Care Provider] - 1-2 days Time of Disposition: 02:01
[2018-08-16 01:12] LABS: Basophils % (A) 0 %; Eosinophils # (A) 0.3 k/uL (0-0.7); Eosinophils % (A) 3 %; HCT 31.8 % (34.0-46.0); Lymphocytes # (A) 2.7 k/uL (1.0-4.8); Lymphocytes % (A) 24 %; MCHC 34.7 g/dL (31.0-37.0); MCV 80.6 fL (80.0-100.0); Mean Platelet Volume 7.7; Monocytes # (A) 0.5 k/uL (0-1.0); Monocytes % (A) 5 %; Neutrophils # (A) 7.4 k/uL (1.3-7.7); Neutrophils % (A) 66 %; Platelet Count 267 k/uL (150-450); RBC 3.94 m/uL (3.80-5.40); RDW 13.1 % (11.5-15.5); WBC 11.2 k/uL (3.8-10.6)
[2018-08-16 01:14] LABS: ALT 31 U/L (9-52); AST 19 U/L (14-36); Albumin 3.2 g/dL (3.5-5.0); Alkaline Phosphatase 82 U/L (38-126); Amylase 86 U/L (30-110); Anion Gap 7 mmol/L; Blood Urea Nitrogen 9 mg/dL (7-17); Calcium 9.5 mg/dL (8.4-10.2); Carbon Dioxide 23 mmol/L (22-30); Chloride 106 mmol/L (98-107); Glucose 101 mg/dL (74-99); Lipase 117 U/L (23-300); Magnesium 1.7 mg/dL (1.6-2.3); Potassium 3.8 mmol/L (3.5-5.1); Sodium 136 mmol/L (137-145); Total Bilirubin 0.3 mg/dL (0.2-1.3); Total Protein 6.3 g/dL (6.3-8.2)
[2018-08-16 01:16] LABS: INR 0.9 (<1.2); Partial Thromboplastin Time 22.4 sec (22.0-30.0)
[2018-08-16 01:26] LABS: Creatine Kinase 68 U/L (30-135)
--- NOTE | 2018-08-16 01:27 | XR ---
EXAMINATION TYPE: XR chest 2V DATE OF EXAM: 08/16/2018 COMPARISON: NONE HISTORY: Chest pain TECHNIQUE: Frontal and lateral views of the chest are obtained. FINDINGS: Heart and mediastinum are normal. Lungs are clear. Diaphragm is normal. Bony thorax appear s normal. IMPRESSION: Normal chest.
[2018-08-16 01:39] LABS: Creatine Kinase MB 0.5 ng/mL (0.0-2.4); Troponin I <0.012 ng/mL (0.000-0.034)
[2018-08-16 01:50] VITALS: BP 111/63; PULSE 85; RESP 17
[2018-08-16 02:00] VITALS: TEMP 98.1
--- NOTE | 2018-08-19 04:02 | CDI ---
Dear Veena Lala DO: Please do addendum Physical Examination. Thank you, Enoch Bajwa, Rent Control Office Manager. If you have any questions, please contact Header Set Up Operator at [phone]. [facility]
== END 2018-08-16 02:00 | disposition home or self-care (01) ==
LOC: EC 00:04
DX: O99.89 Other specified diseases and conditions complicating pregnancy, childbirth and the puerperium (principal); M94.0 Chondrocostal junction syndrome [Tietze]; O99.333 Smoking (tobacco) complicating pregnancy, third trimester; F17.200 Nicotine dependence, unspecified, uncomplicated; Z88.5 Allergy status to narcotic agent; Z3A.30 30 weeks gestation of pregnancy
CPT/HCPCS: 99285; 96360; 36415; 93005; 83880; 80053; 82150; 82550; 82553; 83690; 83735; 84484; 85025; 85610; 85730; 71046; J7512

== ENCOUNTER 2018-09-28 17:42 | Outpatient (CLI) | payer OTHER ==
[2018-09-28] MEDS ORDERED: BUTORPHANOL 1 MG/ML 1 ML VIAL IV PRN (18:23)
[2018-09-28 18:41] LABS: Appearance,Urine Cloudy (Clear); Bacteria,Urine Rare /hpf; Bilirubin,Urine Negative (Negative); Blood,Urine Negative (Negative); Color,Urine Yellow; Glucose,Urine (UA) Negative (Negative); Ketones,Urine 2+ (Negative); Leukocyte Esterase,Urine Large (Negative); Mucus,Urine Rare /hpf; Nitrite,Urine Negative (Negative); PH, Urine 6.5 (5.0-8.0); Protein,Urine 1+ (Negative); RBC,Urine 6 /hpf (0-5); Specific Gravity,Urine 1.025 (1.001-1.035); Squamous Epithelial Cell,Urine 13 /hpf (0-4); WBC,Urine 13 /hpf (0-5)
[2018-09-28] MEDS: LACTATED RINGERS 1,000 ML IV SCH ×2 (18:45→19:29)
[2018-09-28 19:29] LABS: Basophils % (A) 0 %; Eosinophils # (A) 0.2 k/uL (0-0.7); Eosinophils % (A) 2 %; HCT 31.1 % (34.0-46.0); HGB 10.9 gm/dL (11.4-16.0); Lymphocytes % (A) 15 %; MCH 27.1 pg (25.0-35.0); MCV 77.3 fL (80.0-100.0); Monocytes # (A) 0.7 k/uL (0-1.0); Monocytes % (A) 5 %; Neutrophils # (A) 10.2 k/uL (1.3-7.7); Neutrophils % (A) 77 %; Platelet Count 254 k/uL (150-450); RBC 4.02 m/uL (3.80-5.40); RDW 14.3 % (11.5-15.5); WBC 13.3 k/uL (3.8-10.6)
[2018-09-28 19:50] VITALS: BP 122/66; PULSE 90; RESP 18; TEMP 96.8
--- NOTE | 2018-10-03 10:45 | P.MSEPDOC ---
Presenting Problems - Arrival Data Date of Arrival on Unit: 09/28/18 Time of Arrival on Unit: 17:42 Mode of Transport: Wheelchair - Complaint OB-Reason for Admission/Chief Complaint: Pain Comment: pt here with c/o contractions on her right side and vaginal pressure, reports +. fm, denies lof/vb, pain started at 1530 today, abd soft and non tender, right flank area. sensitive to touch, pt denies increase in discomfort with urination or frequency, denies. issues with Medical History - Information : 3 Para: 2 Term: 2 : 0 Abortions: Spontaneous or Elective: 0 Number of Living Children: 2 - Gestational Age Gestational Age by JULIO C (wks/days): 34 Weeks and 6 Days Review of Systems - Review of Systems Constitutional: No problems Breast: No problems ENT: No problems Cardiovascular: No problems Respiratory: No problems Gastrointestinal: No problems Genitourinary: No problems Musculoskeletal: No problems Neurological: No problems Skin: No problems Vital Signs - Temperature Temperature: 96.8 F Temperature Source: Temporal Artery Scan - Pulse Right Brachial Pulse Rate: 90 Pulse Assessment Method: Automatic Cuff - Respirations Respiratory Rate: 18 Oxygen Delivery Method: Room Air - Blood Pressure Right Arm Blood Pressure: 122/66 Blood Pressure Mean: 84 Blood Pressure Source: Automatic Cuff Medical Screen Scoring (Pre) - Cervical Exam Dilation: 0 cm = 0 Membranes: Intact - Uterine Contractions Frequency: > 5 minutes apart = 1 Duration: > 40 seconds = 2 - Maternal Vital Signs Maternal Temperature: N/A Maternal Blood Pressure: N/A Signs of Preeclampsia: N/A Maternal Respirations: N/A - Pain Assessment Pain Location and Character: Right, Back, Abdomen Pain Scale Used: Numeric (1 - 10) Pain Intensity: 8 Pain Description: *Acute, Aching Pain Radiation Location: none Pain Frequency: Intermittent Pain Duration: 3 Pain Duration Units: Hours Pain Behavior: Anxious, Crying, Facial Grimacing, Vocalization Pain Aggravating Factors: None - Maternal Trauma Maternal Trauma: N/A - Assessment Baseline FHR: 125 Heart Rate - NICHD Category: Category I (Normal) = 0 NST: Reactive Position: N/A Station: N/A - Total Score Total Score (Pre): 3 - Level of Risk Level of Risk: Low (0-5) Physician Notification (Pre) - Physician Notified Physician Notified Date: 09/28/18 Physician Notified Time: 18:15 Physician/Practitioner Notifed:: Dr Devlin Spoke With: Dr Claus Tolbert Order Received: Yes (orders given for iv start, pain medication, and labs) Medical Screen Scoring (Post) - Cervical Exam Dilation: Exam Deferred Effacement: Exam Deferred Membranes: Intact - Uterine Contractions Frequency: > 5 minutes apart = 1 Duration: > 40 seconds = 2 Intensity: N/A - Maternal Vital Signs Maternal Temperature: N/A Maternal Blood Pressure: N/A Signs of Preeclampsia: N/A Maternal Respirations: N/A - Pain Assessment Pain Location and Character: Right, Back Pain Scale Used: Numeric (1 - 10) Pain Intensity: 7 Pain Description: *Acute, Burning Pain Radiation Location: none Pain Frequency: Constant Pain Duration: 4 Pain Duration Units: Hours Pain Behavior: Vocalization - Maternal Trauma Maternal Trauma: N/A - Assessment Heart Rate: 120 Heart Rate - NICHD Category: Category I (Normal) = 0 NST: Reactive Position: N/A Station: N/A - Total Score Total Score (Post): 3 - Post Treatment Level of Risk Post Treatment Level of Risk: Low (0-5) Physician Notification (Post) - Physician Notified Physician Notified Date: 09/28/18 Physician Notified Time: 19:35 Physician/Practitioner Notified:: Dr. Devlin Spoke With: Dr. Claus Tolbert Order Received: Yes - Notification Comment Comment: may discharge pt home if pain is tolerable for pt, may take extra strength tylenol, use heating pad as neede for pain, increase oral fluids, and follow up on at scheduled appt, send urine for culture Disposition - Disposition OB Disposition: Physician follow up in office, Discharge to home, Written follow up instructions reviewed Discharge Date: 09/28/18 Discharge Time: 20:20 I agree with the RN Medical Screening Exam: Yes Risk & Benefit of care provided described in d/c instruction: Yes Diagnosis: RELATED CONDITIONS, UNSPECIFIED, THIRD TRIMESTER
== END 2018-09-28 20:20 | disposition home or self-care (01) ==
LOC: FBPOP 17:42
PROVIDERS: ATTEND Obstetrics & Gynecology
DX: O26.93 Pregnancy related conditions, unspecified, third trimester (principal); Z3A.34 34 weeks gestation of pregnancy
CPT/HCPCS: 59025; 96361; 96374; 85025; 81001; 87086; G0463; J0595; 99214

== ENCOUNTER 2018-09-29 21:11 | Outpatient (CLI) | payer OTHER ==
[2018-09-29 22:44] VITALS: BP 119/68; PULSE 98; RESP 16; TEMP 97.1
--- NOTE | 2018-10-11 11:49 | P.MSEPDOC ---
Presenting Problems - Arrival Data Date of Arrival on Unit: 09/29/18 Time of Arrival on Unit: 21:11 Mode of Transport: Ambulatory - Complaint OB-Reason for Admission/Chief Complaint: Possible Onset of Labor Medical History - Information : 3 Para: 2 Term: 2 : 0 Abortions: Spontaneous or Elective: 0 Number of Living Children: 2 - Gestational Age Gestational Age by JULIO C (wks/days): 35 Weeks and 0 Days Review of Systems - Review of Systems Constitutional: No problems Breast: No problems ENT: No problems Cardiovascular: No problems Respiratory: No problems Gastrointestinal: No problems Genitourinary: No problems Musculoskeletal: No problems Neurological: No problems Skin: No problems Vital Signs - Temperature Temperature: 97.1 F Temperature Source: Temporal Artery Scan - Pulse Right Brachial Pulse Rate: 98 Pulse Assessment Method: Automatic Cuff - Respirations Respiratory Rate: 16 Oxygen Delivery Method: Room Air O2 Sat by Pulse Oximetry: 100 - Blood Pressure Right Arm Blood Pressure: 119/68 Blood Pressure Mean: 85 Blood Pressure Source: Automatic Cuff Medical Screen Scoring (Pre) - Cervical Exam Dilation: 1-3 cm = 1 Membranes: Intact - Uterine Contractions Frequency: > 5 minutes apart = 1 - Maternal Vital Signs Maternal Temperature: N/A Maternal Blood Pressure: N/A Signs of Preeclampsia: N/A Maternal Respirations: N/A - Pain Assessment Pain Location and Character: Lower, Back, Abdomen Pain Scale Used: Numeric (1 - 10) Pain Intensity: 5 Pain Description: *Acute, Cramping Pain Frequency: Intermittent Pain Duration Units: Minutes Pain Behavior: Facial Grimacing, Vocalization Pain Aggravating Factors: Contractions - Assessment Baseline FHR: 140 Heart Rate - NICHD Category: Category I (Normal) = 0 NST: Reactive Position: N/A Station: N/A - Total Score Total Score (Pre): 2 - Level of Risk Level of Risk: Low (0-5) Physician Notification (Pre) - Physician Notified Physician Notified Date: 09/29/18 Physician Notified Time: 22:33 Physician/Practitioner Notifed:: Dr. Lewis Spoke With: Dr. Lewis New Order Received: Yes - Notification Comment Comment: Dr. Lewis called and given report on pt in tr. Pt c/o. Vs wnl. Vag exam of 1.5/70/-2 with no change after 1 hr. Reactive nst. Orders recieved to d/ c pt to home. Pt to keep apt with Dr. Devlin for 10/02. Disposition - Disposition OB Disposition: Discharge to home Discharge Date: 09/29/18 Discharge Time: 22:44 I agree with the RN Medical Screening Exam: Yes Risk & Benefit of care provided described in d/c instruction: Yes Diagnosis: FALSE LABOR BEFORE 37 COMPLETED WEEKS OF GEST, THIRD TRI
== END 2018-09-29 22:44 | disposition home or self-care (01) ==
LOC: FBPOP 21:11
PROVIDERS: ATTEND Obstetrics & Gynecology
DX: O47.03 False labor before 37 completed weeks of gestation, third trimester (principal); Z3A.35 35 weeks gestation of pregnancy
CPT/HCPCS: 59025; G0463; 99213

== ENCOUNTER 2018-10-01 17:10 | Outpatient (CLI) | payer SELFPAY ==
[2018-10-01 17:55] VITALS: BP 119/65; PULSE 100; RESP 16; TEMP 97.9
[2018-10-01 18:17] LABS: Appearance,Urine Cloudy (Clear); Bilirubin,Urine Negative (Negative); Blood,Urine Negative (Negative); Color,Urine Yellow; Glucose,Urine (UA) Negative (Negative); Ketones,Urine Trace (Negative); Leukocyte Esterase,Urine Trace (Negative); Mucus,Urine Few /hpf; Nitrite,Urine Negative (Negative); Protein,Urine 1+ (Negative); RBC,Urine 2 /hpf (0-5); Specific Gravity,Urine 1.027 (1.001-1.035); Squamous Epithelial Cell,Urine 13 /hpf (0-4); Urobilinogen,Urine <2.0 mg/dL (<2.0)
--- NOTE | 2018-10-15 11:13 | P.MSEPDOC ---
Presenting Problems - Arrival Data Date of Arrival on Unit: 10/01/18 Time of Arrival on Unit: 17:10 Mode of Transport: Ambulatory - Complaint OB-Reason for Admission/Chief Complaint: Possible Onset of Labor Comment: adam since Saturday off and on, has been to triage twice this week already Medical History - Information : 3 Para: 2 Term: 2 : 0 Abortions: Spontaneous or Elective: 0 Number of Living Children: 2 - Gestational Age Gestational Age by JULIO C (wks/days): 35 Weeks and 2 Days Review of Systems - Review of Systems Constitutional: No problems Breast: No problems ENT: No problems Cardiovascular: No problems Respiratory: No problems Gastrointestinal: No problems Genitourinary: Increased frequency Musculoskeletal: No problems Neurological: No problems Skin: No problems Vital Signs - Temperature Temperature: 97.9 F Temperature Source: Temporal Artery Scan - Pulse Right Brachial Pulse Rate: 100 Pulse Assessment Method: Automatic Cuff - Respirations Respiratory Rate: 16 Oxygen Delivery Method: Room Air - Blood Pressure Right Arm Blood Pressure: 119/65 Blood Pressure Mean: 83 Blood Pressure Source: Automatic Cuff Medical Screen Scoring (Pre) - Cervical Exam Dilation: 1-3 cm = 1 Membranes: Intact - Uterine Contractions Frequency: > 5 minutes apart = 1 Duration: > 40 seconds = 2 - Maternal Vital Signs Maternal Temperature: N/A Maternal Blood Pressure: N/A Signs of Preeclampsia: N/A Maternal Respirations: N/A - Pain Assessment Pain Location and Character: Abdomen Pain Scale Used: Numeric (1 - 10) Pain Intensity: 7 Pain Description: *Acute, Tightness Pain Frequency: Intermittent Pain Duration: 3 Pain Duration Units: Days Pain Behavior: None Exhibited Pain Aggravating Factors: Contractions - Assessment Baseline FHR: 125 Heart Rate - NICHD Category: Category I (Normal) = 0 NST: Reactive Position: N/A Station: N/A - Total Score Total Score (Pre): 4 - Level of Risk Level of Risk: Low (0-5) Physician Notification (Post) - Physician Notified Physician Notified Date: 10/01/18 Physician Notified Time: 18:56 Spoke With: Harjit New Order Received: Yes (d/c home) - Notification Comment Comment: no cervical foreign exchange clerk hour Disposition - Disposition OB Disposition: Discharge to home, Written follow up instructions reviewed Discharge Date: 10/01/18 Discharge Time: 19:03 I agree with the RN Medical Screening Exam: Yes Risk & Benefit of care provided described in d/c instruction: Yes Diagnosis: FALSE LABOR BEFORE 37 COMPLETED WEEKS OF GEST, THIRD TRI
== END 2018-10-01 19:03 | disposition home or self-care (01) ==
LOC: FBPOP 17:10
PROVIDERS: ATTEND Obstetrics & Gynecology Obstetrics
DX: O47.03 False labor before 37 completed weeks of gestation, third trimester (principal); Z3A.35 35 weeks gestation of pregnancy
CPT/HCPCS: 59025; 81001; 99213

== ENCOUNTER 2018-10-05 21:07 | Outpatient (CLI) | payer OTHER ==
[2018-10-05 21:18] VITALS: BP 118/67; RESP 16; TEMP 97.3
[2018-10-05 22:41] VITALS: PULSE 92
--- NOTE | 2018-12-02 09:35 | P.MSEPDOC ---
Presenting Problems - Arrival Data Date of Arrival on Unit: 10/05/18 Time of Arrival on Unit: 20:52 Mode of Transport: Ambulatory - Complaint OB-Reason for Admission/Chief Complaint: Possible Onset of Labor Comment: Patient presents to triage with contractions that started around 1430pm, states they are approximately 2-3 minutes apart, states that she is experiencing a lot of pressure. Medical History - Information : 3 Para: 2 Term: 2 : 0 Abortions: Spontaneous or Elective: 0 Number of Living Children: 2 - Gestational Age Gestational Age by JULIO C (wks/days): 35 Weeks and 6 Days - History Sexually Transmitted Diseases: HSV Comment: No current outbreak Review of Systems - Review of Systems Constitutional: No problems Breast: No problems ENT: No problems Cardiovascular: No problems Respiratory: No problems Gastrointestinal: No problems Genitourinary: No problems Musculoskeletal: No problems Neurological: No problems Skin: No problems Vital Signs - Temperature Temperature: 97.3 F Temperature Source: Temporal Artery Scan - Pulse Pulse Oximetery Pulse Rate: 92 Pulse Assessment Method: Pulse Oximetry - Respirations Respiratory Rate: 16 - Blood Pressure Sitting Blood Pressure: 118/67 Blood Pressure Mean: 84 Blood Pressure Source: Automatic Cuff Medical Screen Scoring (Pre) - Cervical Exam Dilation: 1-3 cm = 1 Membranes: Intact - Uterine Contractions Frequency: > 5 minutes apart = 1 Duration: N/A Intensity: N/A - Maternal Vital Signs Maternal Temperature: N/A Maternal Blood Pressure: N/A Signs of Preeclampsia: N/A Maternal Respirations: N/A - Pain Assessment Pain Location and Character: Perineal Pain Scale Used: Numeric (1 - 10) Pain Intensity: 7 Pain Description: *Acute Pain Duration: 7 Pain Duration Units: Hours - Maternal Trauma Maternal Trauma: N/A - Assessment Baseline FHR: 135 Heart Rate - NICHD Category: Category I (Normal) = 0 NST: Reactive Position: N/A Station: N/A - Total Score Total Score (Pre): 2 - Level of Risk Level of Risk: Low (0-5) Medical Screen Scoring (Post) - Cervical Exam Dilation: 1-3 cm = 1 Membranes: Intact - Uterine Contractions Frequency: > 5 minutes apart = 1 Duration: > 40 seconds = 2 Intensity: N/A - Maternal Vital Signs Maternal Temperature: N/A Maternal Blood Pressure: N/A Signs of Preeclampsia: N/A Maternal Respirations: N/A - Assessment Heart Rate: 120 Heart Rate - NICHD Category: Category I (Normal) = 0 NST: Reactive Position: N/A - Total Score Total Score (Post): 4 - Post Treatment Level of Risk Post Treatment Level of Risk: Low (0-5) Physician Notification (Post) - Physician Notified Physician Notified Date: 10/05/18 Physician Notified Time: 22:22 Physician/Practitioner Notified:: Dr Blanco - Notification Comment Comment: called Dr Blanco- reported on pts c/o, fhts, cntrx, vitals, SVE unchanged. Dr Blanco in dept, reviewed strip, orders to d/c home with instructions. keep scheduled appt on saturday Disposition - Disposition OB Disposition: Discharge to home Discharge Date: 10/05/18 Discharge Time: 22:22 I agree with the RN Medical Screening Exam: Yes Risk & Benefit of care provided described in d/c instruction: Yes Diagnosis: FALSE LABOR, UNSPECIFIED
== END 2018-10-05 22:30 | disposition home or self-care (01) ==
LOC: FBPOP 21:07
PROVIDERS: ATTEND Obstetrics & Gynecology
DX: O47.03 False labor before 37 completed weeks of gestation, third trimester (principal); Z3A.35 35 weeks gestation of pregnancy
CPT/HCPCS: 59025; G0463; 99213

== ENCOUNTER 2018-10-26 16:02 | Outpatient (CLI) | payer OTHER ==
[2018-10-26 17:42] VITALS: BP 129/81; PULSE 105; RESP 16; TEMP 97.2
--- NOTE | 2018-11-11 09:24 | P.MSEPDOC ---
Presenting Problems - Arrival Data Date of Arrival on Unit: 10/26/18 Time of Arrival on Unit: 16:00 Mode of Transport: Ambulatory - Complaint OB-Reason for Admission/Chief Complaint: Possible Onset of Labor Medical History - Information : 3 Para: 2 Term: 2 : 0 Abortions: Spontaneous or Elective: 0 Number of Living Children: 2 - Gestational Age Gestational Age by JULIO C (wks/days): 38 Weeks and 6 Days Review of Systems - Review of Systems Constitutional: No problems Breast: No problems ENT: No problems Cardiovascular: No problems Respiratory: No problems Gastrointestinal: No problems Genitourinary: No problems Musculoskeletal: No problems Neurological: No problems Skin: No problems Vital Signs - Temperature Temperature: 97.2 F Temperature Source: Tympanic - Pulse Right Brachial Pulse Rate: 105 Pulse Assessment Method: Automatic Cuff - Respirations Respiratory Rate: 16 Oxygen Delivery Method: Room Air - Blood Pressure Right Arm Blood Pressure: 129/81 Blood Pressure Mean: 97 Blood Pressure Source: Automatic Cuff Medical Screen Scoring (Pre) - Cervical Exam Dilation: 1-3 cm = 1 Effacement: More than 50% = 2 Membranes: Intact - Uterine Contractions Frequency: > or = 36 weeks =2 Duration: > 40 seconds = 2 Intensity: N/A - Maternal Vital Signs Maternal Temperature: N/A Maternal Blood Pressure: N/A Signs of Preeclampsia: N/A Maternal Respirations: N/A - Pain Assessment Pain Location and Character: Abdomen Pain Scale Used: Numeric (1 - 10) Pain Intensity: 6 Pain Management Goal: 2 Pain Description: *Acute Pain Radiation Location: na Pain Frequency: Intermittent Pain Duration: 4 Pain Duration Units: Minutes Pain Behavior: Vocalization Pain Aggravating Factors: None Non-Pharmacological Interventions: Position/Reposition - Maternal Trauma Maternal Trauma: N/A - Assessment Baseline FHR: 135 Heart Rate - NICHD Category: Category I (Normal) = 0 NST: Reactive Position: N/A Station: N/A - Total Score Total Score (Pre): 7 - Level of Risk Level of Risk: Medium (6-9) Physician Notification (Pre) - Physician Notified Physician Notified Date: 10/26/18 Physician Notified Time: 17:30 Physician/Practitioner Notifed:: Dr. Blanco Spoke With: Dr. Adam New Order Received: Yes - Notification Comment Comment: d/c home to follow up with Dr. Devlin in the office Disposition - Disposition OB Disposition: Discharge to home Discharge Date: 10/26/18 Discharge Time: 17:42 I agree with the RN Medical Screening Exam: Yes Risk & Benefit of care provided described in d/c instruction: Yes Diagnosis: FALSE LABOR, UNSPECIFIED
== END 2018-10-26 17:44 | disposition home or self-care (01) ==
LOC: FBPOP 16:02
PROVIDERS: ATTEND Obstetrics & Gynecology
DX: O47.9 False labor, unspecified (principal); Z3A.38 38 weeks gestation of pregnancy
CPT/HCPCS: 59025; G0463; 99213

== ENCOUNTER 2018-10-27 09:07 | Inpatient (IN) | payer OTHER ==
[2018-10-27] MEDS ORDERED: TERBUTALINE 1 MG/ML VIAL SQ PRN (10:03)
[2018-10-27] MEDS ORDERED: LIDOCAINE 0.5% (PF) 5 MG/ML (50 ML SDV) SQ PRN (10:03)
[2018-10-27] MEDS ORDERED: OXYTOCIN 10 UNIT/ML 1 ML VIAL IM PRN (10:03)
[2018-10-27] MEDS ORDERED: PENICILLIN G POTASSIUM 5,000,000 UNIT in DEXTROSE 5% IN WATER 100 ML IVPB STA ×2 (10:03)
[2018-10-27] MEDS ORDERED: METHYLERGONOVINE 0.2 MG/ML 1 ML AMP IM PRN (10:03)
[2018-10-27] MEDS ORDERED: CARBOPROST TROMETHAMINE 250 MCG/ML 1 ML AMP IM PRN (10:03)
[2018-10-27] MEDS ORDERED: OXYTOCIN 30 UNITS/500 ML NS 30 UNIT in SALINE 1 500ML.BAG IV SCH (10:15)
[2018-10-27 10:17] LABS: Basophils % (A) 0 %; Eosinophils # (A) 0.1 k/uL (0-0.7); Eosinophils % (A) 1 %; HCT 32.5 % (34.0-46.0); HGB 11.1 gm/dL (11.4-16.0); Lymphocytes # (A) 2.4 k/uL (1.0-4.8); Lymphocytes % (A) 21 %; MCH 25.5 pg (25.0-35.0); MCHC 34.2 g/dL (31.0-37.0); MCV 74.7 fL (80.0-100.0); Mean Platelet Volume 9.3; Microcytosis Slight; Monocytes # (A) 0.5 k/uL (0-1.0); Monocytes % (A) 5 %; Neutrophils % (A) 72 %; Platelet Count 273 k/uL (150-450); RBC 4.35 m/uL (3.80-5.40); RDW 15.5 % (11.5-15.5); WBC 11.2 k/uL (3.8-10.6)
[2018-10-27 10:22] VITALS: BMI 31.4
[2018-10-27] MEDS: LACTATED RINGERS 1,000 ML IV SCH ×2 (10:25→19:49)
--- NOTE | 2018-10-27 14:11 | P.HPOB ---
History of Present Illness H&P Date: 10/27/18 Chief Complaint: My water broke at 6:15 this morning. Patient presented to labor and delivery this morning with a complaint that her water broke, clear fluid, at approximate 6:15 AM. She has a history of HSV, on Valtrex, with no prodrome fetus is been active throughout the . She is having mild irregular uterine contractions on admission. She is a 23-year-old 4 para 2012 EDC 11/06/2018 at 39 and one sevenths weeks' gestation. Past medical history is significant for anxiety, depression, sickle cell trait, HSV infections. Past surgical history voluntary termination of 2007, cholecystectomy 2016, wisdom teeth extracted in the past. Current medications Valtrex 500 mg tablets once daily, Zoloft 25 mg as needed, vitamin daily. ALLERGIES include codeine to which reports hives. Family history is significant for sickle cell disease, diabetes, cervical cancer, hypertension, unspecified heart issues. Reproductive history significant for normal spontaneous vaginal deliveries 2, both healthy newborns. history is significant for blood type A+, rubella status immune. Pap smear low-grade DIANNE. Gonorrhea culture negative, Chlamydia positive, treated in April, repeat culture negative. Urine drug screen negative. One-hour Glucola 84. Group B strep cultures positive in the urine, plan is for treatment in labor. On exam she is 5 foot 1-1/2 inches, 166 pounds, vital signs are stable and she is afebrile. General physical exam is within normal limits. Cervix is 3 cm dilated on admission, 60-70% effaced, vertex, soft, -2, vertex. heart rate is consistent with reactive NST. No lesions are noted on the perineal body. Impression: 39 and one sevenths weeks intrauterine , early active labor. Positive group B strep cultures. Plan: Penicillin G per hospital protocol. Close maternal and surveillance. Oxytocin if deemed necessary. Anticipate normal spontaneous vaginal delivery. Review of Systems Constitutional: Reports as per HPI Past Medical History Past Medical History: No Reported History Additional Past Medical History / Comment(s): HSV 2 History of Any Multi-Drug Resistant Organisms: None Reported Past Surgical History: Cholecystectomy Past Anesthesia/Blood Transfusion Reactions: No Reported Reaction Past Psychological History: Anxiety, Depression Smoking Status: Former smoker Past Alcohol Use History: None Reported Additional Past Alcohol Use History / Comment(s): Patient only smoked briefly. She denies any medical marijuana, marijuana, street drug or alcohol use. She has 2 young children with no major medical problems. - Past Family History Mother Family Medical History: No Reported History Additional Family Medical History / Comment(s): Mother is alive in her 60s with no major medical problems. Father Family Medical History: No Reported History Additional Family Medical History / Comment(s): Father is alive at age 56 with no major medical problems. Patient has 2 brothers and 1 sister with no major medical problems. Medications and Allergies Home Medications Medication Instructions Recorded Confirmed Type Lyf-Kohz-Mwqcu Acid 1 cap PO DAILY 05/30/18 10/27/18 History [-U Capsule (formulary)] valACYclovir [Valtrex] 1,000 mg PO DAILY 10/05/18 10/27/18 History Allergies Allergy/AdvReac Type Severity Reaction Status Date / Time codeine Allergy Rash/Hives Verified 10/27/18 09:12 Exam Vital Signs Temp Pulse Resp BP 10/27/18 10:02 97.2 F L 100 16 10/27/18 09:32 97.9 F 77 16 126/71 Intake and Output 10/26/18 10/27/18 10/27/18 22:59 06:59 14:59 Other: Weight 75.478 kg See dictation under HPI please Results Result Diagrams: 10/27/18 09:30 Abnormal Lab Results - Last 24 Hours (Table) 10/27/18 Range/Units 09:30 WBC 11.2 H (3.8-10.6) k/uL Hgb 11.1 L (11.4-16.0) gm/dL Hct 32.5 L (34.0-46.0) % MCV 74.7 L (80.0-100.0) fL Neutrophils # 8.0 H (1.3-7.7) k/uL Assessment and Plan Assessment: 39 and one sevenths weeks intrauterine , early spontaneous labor. No prodrome or lesions consistent with herpes simplex. All signs currently reassuring. Positive group B strep cultures noted. Plan: Penicillin G per hospital protocol. Close maternal and surveillance. Anticipate normal spontaneous vaginal delivery. Time with Patient: Less than 30
[2018-10-27] MEDS: PENICILLIN G POTASSIUM 2,500,000 UNIT in DEXTROSE 5% IN WATER 100 ML IVPB SCH ×4 (14:30→19:52)
[2018-10-27] MEDS ORDERED: IBUPROFEN 600 MG TAB PO PRN (15:54)
[2018-10-27] MEDS ORDERED: ZOLPIDEM 5 MG TAB PO PRN (15:54)
[2018-10-27] MEDS ORDERED: diphenhydrAMINE ELIXIR 25 MG/10 ML CUP PO PRN (15:54)
[2018-10-27] MEDS ORDERED: WITCH HAZEL 1 EACH MED..PAD TOPICAL PRN (15:54)
[2018-10-27] MEDS ORDERED: ACETAMINOPHEN TAB 325 MG TAB PO PRN (15:54)
[2018-10-27] MEDS ORDERED: LANOLIN CREAM 5 GM TUBE TOPICAL PRN (15:54)
[2018-10-27] MEDS ORDERED: diphenhydrAMINE 50 MG/ML 1 ML VIAL IVP PRN ×2 (15:54)
[2018-10-27] MEDS ORDERED: BENZOCAINE/MENTHOL SPRAY 1 GM/SPRAY AEROSOL TOPICAL PRN (15:54)
[2018-10-27] MEDS ORDERED: diphenhydrAMINE 50 MG CAP PO PRN (15:54)
[2018-10-27] MEDS ORDERED: SIMETHICONE 80 MG CHEWABLE PO PRN (15:54)
[2018-10-27] MEDS ORDERED: HYDROCORTISONE 2.5% RECTAL CREAM 30 GM TUBE RECTAL PRN (15:54)
[2018-10-27] MEDS ORDERED: diphenhydrAMINE 25 MG CAP PO PRN (15:54)
--- NOTE | 2018-10-27 15:54 | P.PROBDLV ---
Vaginal Delivery Note - . Vaginal Delivery Note: This is a 23-year-old female 4 para 2012 EDC 11/06/2018 at 39 and one sevenths weeks' gestation. Patient presents with spontaneous amniorrhexis which occurred at home, clear fluid, at approximately 0618 hours. She had mild uterine contractions to follow. She has a history of herpes simplex infection, no prodrome and no lesions at this time. She has been on Valtrex daily. Group B strep cultures are positive, otherwise unremarkable. Please see dictated history and physical for details. Patient was admitted, penicillin G prophylaxis was given, and 2 doses were received. heart rate was reassuring throughout the first and second stages of labor. Patient was offered analgesic options and declined all. She progressed well through the first stage of labor was judged to be completely dilated at 1536 hours. Perineal body was prepped and draped in usual sterile fashion. With excellent maternal expulsive efforts the 's head delivered occiput anterior and restituted accordingly. There was no nuchal cord noted. The right or anterior shoulder was delivered easily from underneath the pubic symphysis at which time the oropharynx, nasopharynx, and external nares were all bulb suctioned on the perineal body. Patient was officially delivered of a liveborn female infant at 1538 hours. Umbilical cord was doubly clamped and ligated, she was handed to waiting nurses for evaluation where scores of 9 and 9 at one and 5 minutes respectively were given. The placenta delivered spontaneously, it was inspected and noted to be intact with trivascular cord at 1541 hours. At this time the uterus is massaged. Inspection of the cervix, vagina, perineum, periurethral areas and perirectal areas revealed no lacerations and no defects. Fundus is firm and in the midline, symmetric and 18 week size upon completion of delivery. All sponge needle and enhancement counts are correct. Total estimated blood loss 250 mL's. Infant weighed 3470 g, or 7 lbs. 10 oz. Patient and her family are allowed to begin the bonding experience in the LDR.
[2018-10-27] MEDS ORDERED: OXYTOCIN 20 UNITS/1000 ML NS 1,000 ML IV SCH (16:00)
[2018-10-27 21:14] VITALS: RESP 18
[2018-10-27] MEDS: SENNOSIDES-DOCUSATE SODIUM 1 EACH TAB PO SCH (21:32)
--- NOTE | 2018-10-28 07:51 | P.DS ---
Providers Date of admission: 10/27/18 09:43 Expected date of discharge: 10/28/18 Attending physician: Marybeth Devlin Primary care physician: Stated None Hospital Course: This is a 23-year-old white female 4 para 2012 EDC 11/06/2018 at 39 and one sevenths weeks' gestation. Patient presented with spontaneous amniorrhexis which occurred at home, clear fluid. was remarkable for positive group B strep status, rubella status immune, blood type A positive. Please see admitting H&P for details. Patient was admitted, antibiotic prophylaxis was instituted. She was offered analgesia but declined. She went on to deliver vaginally a liveborn female infant with scores of 9 and 9 at one and 5 minutes respectively. weighed 7 lbs. 10 oz. or 3470 g. There was an estimated blood loss of 250 mL, no lacerations. Please see dictated delivery note for details. This morning the patient is doing well. She is voiding, ambulating and passing flatus without difficulty. Vital signs are stable and she is afebrile. Fundus is firm and in the midline, symmetric and 18 week size. Extremities are negative for edema. infant is doing well. Pain is well-controlled. Patient is judged to be in excellent condition for discharge home. Patient will follow-up with me in the office in 6 weeks. I have reminded her no intercourse, tampons or douching. She will use [id number] analgesics products, Motrin Advil or Aleve as needed for pain. She will call with any fevers shakes or chills, foul smelling or copious lochia with the passage of large blood clots, with any pain not alleviated by [id number] products or indeed with any concerns. She is contemplating a tubal ligation, consents have not been signed. We will discuss this further in the office. Patient Condition at Discharge: Good Plan - Discharge Summary Discharge Rx Participant: No New Discharge Prescriptions: No Action Gan-Nana-Vhjhr Acid [-U Capsule (formulary)] 1 cap PO DAILY valACYclovir [Valtrex] 1,000 mg PO DAILY Discharge Medication List Gkj-Pmym-Emhve Acid [-U Capsule (formulary)] 1 cap PO DAILY 05/30/18 [History] valACYclovir [Valtrex] 1,000 mg PO DAILY 10/05/18 [History] Follow up Appointment(s)/Referral(s): Marybeth Devlin MD [STAFF PHYSICIAN] - 6 Weeks
[2018-10-28] MEDS ORDERED: SERTRALINE 25 MG TAB PO SCH (09:00)
[2018-10-28] MEDS: SENNOSIDES-DOCUSATE SODIUM 1 EACH TAB PO SCH (09:15)
[2018-10-28 12:00] VITALS: BP 111/79; PULSE 66; TEMP 98.6
== END 2018-10-28 18:05 | disposition home or self-care (01) | DRG 806 ==
LOC: FBPOP 09:07 → 4FBP 09:43
PROVIDERS: ADMIT Obstetrics & Gynecology; ATTEND Obstetrics & Gynecology
PROC: 10E0XZZ Delivery of Products of Conception, External Approach (ICD-10-PCS; principal; 2018-10-27)
DX: O99.824 Streptococcus B carrier state complicating childbirth (principal); O98.32 Other infections with a predominantly sexual mode of transmission complicating childbirth; Z37.0 Single live birth; Z3A.39 39 weeks gestation of pregnancy; A60.00 Herpesviral infection of urogenital system, unspecified; D57.3 Sickle-cell trait; Z79.899 Other long term (current) drug therapy; Z87.891 Personal history of nicotine dependence; Z90.49 Acquired absence of other specified parts of digestive tract; Z86.59 Personal history of other mental and behavioral disorders; Z88.5 Allergy status to narcotic agent; Z83.2 Family history of diseases of the blood and blood-forming organs and certain disorders involving the immune mechanism; Z83.3 Family history of diabetes mellitus; Z80.49 Family history of malignant neoplasm of other genital organs; Z82.49 Family history of ischemic heart disease and other diseases of the circulatory system
CPT/HCPCS: 59025; 84112; 85025; 86850; 86900; 86901; 99213

== ENCOUNTER → 2019-02-27 | Outpatient (CLI) | payer OTHER ==
[2019-02-27 14:26] LABS: Anisocytosis Slight; Basophils # (A) 0.1 k/uL (0-0.2); Basophils % (A) 1 %; Eosinophils # (A) 0.3 k/uL (0-0.7); Eosinophils % (A) 2 %; HCT 39.3 % (34.0-46.0); HGB 13.4 gm/dL (11.4-16.0); Lymphocytes # (A) 2.9 k/uL (1.0-4.8); Lymphocytes % (A) 24 %; MCH 26.7 pg (25.0-35.0); MCHC 34.2 g/dL (31.0-37.0); MCV 78.1 fL (80.0-100.0); Mean Platelet Volume 7.6; Monocytes # (A) 0.5 k/uL (0-1.0); Monocytes % (A) 4 %; Neutrophils % (A) 68 %; Platelet Count 341 k/uL (150-450); RBC 5.03 m/uL (3.80-5.40); RDW 16.2 % (11.5-15.5); WBC 11.8 k/uL (3.8-10.6)
== END | disposition home or self-care (01) ==
LOC: LABPAT 13:28
PROVIDERS: ATTEND Obstetrics & Gynecology
DX: Z01.812 Encounter for preprocedural laboratory examination (principal); Z64.0 Problems related to unwanted pregnancy
CPT/HCPCS: 36415; 85025

== ENCOUNTER 2019-03-02 08:59 | Day surgery (SDC) | payer OTHER ==
--- NOTE | 2019-02-26 11:45 | HP ---
HISTORY AND PHYSICAL Admit H and P for surgery on Saturday. This is a 24-year-old female, 4, para 3-0-1-3 who presents for permanent tubal sterilization. She is aware of all options of contraception available to her. She understands that this is a permanent procedure for contraception, however, there is a failure rate. She understands that if she should find herself in the future, with breast tenderness, amenorrhea, nausea, or any other signs and symptoms of , test should be obtained immediately and information relayed to my office for assessment and proper treatment. All questions have been answered. The [employer] pamphlet on the procedure have been given to the patient and have been reviewed in detail. PAST MEDICAL HISTORY: Past medical history is significant for anxiety and depression, as well as sickle cell trait. History of HSV. PAST SURGICAL HISTORY: Cholecystectomy 2016, voluntary termination of 2007, wisdom teeth extracted. CURRENT MEDICATIONS: Valtrex 1 mg for prophylactic reasons during , and as needed for herpes outbreak. ALLERGIES: Allergies include CODEINE to which reports hives, and SEASONAL ALLERGIES to which she reports upper respiratory tract symptoms. FAMILY HISTORY: Family history is significant for sickle cell disease, hypertension, and heart valve issues. REPRODUCTIVE HISTORY: Significant for normal spontaneous vaginal deliveries x3, voluntary termination in 2007 as noted above. SOCIAL HISTORY: Patient is single. She is a smoker of 1/4 pack per day tobacco. She works at a local [employer]. She denies alcohol or drug use. PHYSICAL EXAMINATION: On exam, this is a pleasant young female who is 5 feet, 1.5 inches, 146 pounds, BMI 27, blood pressure 114/70. HEENT exam reveals good dentition, no thyromegaly, trachea midline. No cervical lymphadenopathy. Chest is clear to auscultation in all storm anteriorly and posteriorly. Cardiac exam reveals a regular rate and rhythm with no murmur, click, or rub. Breasts are bilaterally symmetric to inspection with no skin dimpling, nipple discharge, or axillary adenopathy. Abdomen is soft and nontender, active bowel sounds, no organosplenomegaly. No CVA tenderness. Extremities revealed no edema and normal peripheral pulses. Good range of motion. Pelvic exam reveals a multiparous cervix, small anteverted anteflexed uterus that is smooth and nontender and mobile. Adnexa are negative to palpation bilaterally. IMPRESSION: Multiparous young female requesting permanent tubal sterilization. Well aware of the risks, benefits, alternatives and failure rate. PLAN: We will proceed with laparoscopic tubal ligation utilizing Blaine clips under my care on Saturday, March 02, 2019. MMODL / IJN: [id number] /
[2019-02-27 11:17] VITALS: BMI 28.3
[~2019-03-02 08:59] MED LIST: DEXAMETHASONE SOD PHOSPHATE 10 MG/ML 1 ML VIAL IV ONE; KETOROLAC 30 MG/ML 1 ML VIAL IVP SCH; LACTATED RINGERS 1,000 ML IV SCH; LIDOCAINE 1% 20 ML VIAL (10MG/ML) FOR IV START INTRADERMA PRN; MORPHINE SULFATE 2 MG/ML SYRINGE IV PRN; ONDANSETRON 4 MG/2 ML VIAL IVP ONE; ONDANSETRON 4 MG/2 ML VIAL IVP PRN; Pre Op ABX Message 1 EACH MISC MISCELLANE ONE; SCOPOLAMINE 1.5MG/72HR PATCH TRANSDERM ONE
[2019-03-02] MEDS ORDERED: fentaNYL (PF) 50 MCG/ML 2 ML AMP ONE (10:35)
[2019-03-02] MEDS ORDERED: PROPOFOL 10 MG/ML 20 ML VIAL IV ONE (10:35)
[2019-03-02] MEDS ORDERED: KETOROLAC 30 MG/ML 1 ML VIAL ONE (10:35)
[2019-03-02] MEDS ORDERED: ROCURONIUM BROMIDE 10 MG/ML 10 ML VIAL IV ONE (10:35)
[2019-03-02] MEDS ORDERED: MIDAZOLAM 2 MG/2 ML VIAL ONE (10:35)
[2019-03-02] MEDS ORDERED: NEOSTIGMINE 1 MG/ML 10 ML VIAL ONE (10:35)
[2019-03-02] MEDS ORDERED: GLYCOPYRROLATE 0.2 MG/ML 2 ML VIAL ONE (10:35)
[2019-03-02] MEDS ORDERED: LIDOCAINE 1% INJ 10MG/ML (20 ML MDV) ONE (10:35)
[2019-03-02] MEDS ORDERED: SUCCINYLCHOLINE CHLORIDE 100 MG/5 ML SYR IV ONE (10:35)
[2019-03-02] MEDS ORDERED: BUPIVACAINE (PF) 0.5% 30 ML VIAL SQ ONE (10:52)
[2019-03-02] MEDS ORDERED: BUPIVACAINE (PF) 0.25% 30 ML VIAL SQ ONE ×2 (11:07→11:14)
[2019-03-02] MEDS ORDERED: LACTATED RINGERS 1,000 ML IV ONE (11:13)
--- NOTE | 2019-03-02 11:19 | P.OP ---
Date of Procedure: 03/02/19 Preoperative Diagnosis: Undesired fertility Postoperative Diagnosis: Same, normal-appearing female pelvis Procedure(s) Performed: Laparoscopic tubal ligation with Filshie clips Anesthesia: GENESIS Surgeon: Marybeth Devlin Estimated Blood Loss (ml): 10 IV fluids (ml): 600 Urine output (ml): 10 Pathology: none sent Condition: stable Disposition: PACU Operative Findings: Normal-appearing tubes and ovaries bilaterally. No uterine anomalies appreciated. Description of Procedure: Patient is brought to the operating suite where a general anesthetic is administered without difficulty. She's placed in the dorsal lithotomy position. The cervix, vagina, perineal bodies and abdomen are all prepped and draped in the usual sterile fashion. The appropriate timeout was performed to assure proper patient and procedural identification. Examination under anesthesia reveals a small anteverted uterus, negative adnexa bilaterally. Bladder is drained for 10 mL of clear yellow urine. The bivalve speculum was placed into the vagina, the anterior lip of the cervix grasped with an Allis clamp, the large acorn placed and connected to the Allis clamp. Speculum is removed. Attention is now brought to the abdominal wall. A small infraumbilical incision is made. There is needle is placed and placement is checked with hanging drop technique. Abdomen is insufflated under low filling pressures of 6 mmHg for a total of 3.5 L of CO2 gas. There is needle was removed. Trochars placed and placement is noted to be atraumatic. Second incision is made above the mons pubis and a second instrument is placed under direct visualization. Patient is now placed in Trendelenburg position. Uterus is placed in the anteverted lateral traction. The right fallopian tube is visualized in its entirety to the fimbriated end. A Filshie clip is placed in the isthmic portion of the tube, with care to traverse the entire diameter of the tube into the mesal salpinx. Fimbriated end is identified for proper placement. Ovary appears normal. The same procedure is carried out on the left fallopian tube, fimbriated end identified, clip placed through the entire tube into the mesal salpinx. No evidence of endometriosis or pelvic adhesions is noted. Uterus appears smooth and normal in its contour and size. No adnexal abnormalities are appreciated. CO2 gas was allowed to diffuse. The fascial incisions are inspected upon removing the instruments, they are clean and dry. 4-0 undyed Monocryl is used in a subcuticular manner to close this 2 small skin incisions. They are injected with a total of 8 mL of quarter percent Marcaine without epinephrine to aid in analgesia. Toradol is given to the patient prior to leaving the operative suite. Patient is brought back to the recovery room in very good condition with stable vital signs, including blood pressure 118/69, pulse 57, 98% O2 saturation. Patient will follow-up with me in the office in 2 weeks.
[2019-03-02 11:38] VITALS: TEMP 97.6
[2019-03-02 11:49] VITALS: RESP 16
[2019-03-02] MEDS ORDERED: ONDANSETRON 4 MG/2 ML VIAL IVP ONE ×2 (12:27)
[2019-03-02] MEDS ORDERED: HYDROmorphone 1 MG/ML 1 ML SYRINGE IVP ONE ×2 (12:29→12:36)
[2019-03-02 13:26] VITALS: BP 123/79; PULSE 70
== END 2019-03-02 13:57 | disposition home or self-care (01) ==
LOC: OR 08:59
PROVIDERS: ATTEND Obstetrics & Gynecology
DX: Z30.2 Encounter for sterilization (principal); F41.9 Anxiety disorder, unspecified; F32.9 Major depressive disorder, single episode, unspecified; Z91.048 Other nonmedicinal substance allergy status; Z83.2 Family history of diseases of the blood and blood-forming organs and certain disorders involving the immune mechanism; Z79.899 Other long term (current) drug therapy; Z88.5 Allergy status to narcotic agent
CPT/HCPCS: 81025; 58671; J2250; J1100; J2710; J2405; J2001; J3010; J1885; J1170; J0330; J2704

== ENCOUNTER 2020-07-24 13:17 | Emergency (ER) | payer OTHER ==
--- NOTE | 2020-07-24 13:57 | ED ---
Female Urogenital HPI - General Chief complaint: Urogenital Stated complaint: female Time Seen by Provider: 07/24/20 13:30 Source: patient Mode of arrival: ambulatory Limitations: no limitations - History of Present Illness Initial comments: Patient is a 25-year-old female presenting to the emergency Department with complaints of vaginal odor, discharge for the past 4 days. 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 Patient states she feels itchy and irritated as well as having a white to clear discharge. She states she also states smells a "fishy odor." She denies being at this time secondary to tubal clips. She states there is a possibility of STD. She denies any fever, chills, nausea, vomiting, abdominal pain. Patient has no further complaints at this time. Upon arrival to the ER her vitals are stable. Last Menstrual Period: 07/20/20 - Related Data Home Medications Medication Instructions Recorded Confirmed No Known Home Medications 02/27/19 03/02/19 Allergies Allergy/AdvReac Type Severity Reaction Status Date / Time codeine Allergy Rash/Hives Verified 07/24/20 13:24 Review of Systems ROS Statement: Those systems with pertinent positive or pertinent negative responses have been documented in the HPI. ROS Other: All systems not noted in ROS Statement are negative. 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 SICKLE CELL TRAIT History of Any Multi-Drug Resistant Organisms: None Reported Past Surgical History: Cholecystectomy Additional Past Surgical History / Comment(s): WISDOM TEETH REMOVED UNDER ANESTHESIA Past Anesthesia/Blood Transfusion Reactions: No Reported Reaction Past Psychological History: Anxiety, Depression Past Alcohol Use History: None Reported Past Drug Use History: None Reported - Past Family History Mother Family Medical History: No Reported History Additional Family Medical History / Comment(s): Mother is alive in her 60s with no major medical problems. Father Family Medical History: No Reported History Additional Family Medical History / Comment(s): Father is alive at age 56 with no major medical problems. Patient has 2 brothers and 1 sister with no major medical problems. General Exam - General Exam Comments Initial Comments: GENERAL: Patient is well-developed and well-nourished. Patient is nontoxic and in no acute distress. HEAD: Atraumatic, normocephalic. EYES: Pupils equal round and reactive to light, extraocular movements intact, sclera anicteric, conjunctiva are normal. Eyelids were unremarkable. ENT: TMs normal, nares patent, oropharynx clear without exudates. Moist mucous membranes. NECK: Normal range of motion, supple without lymphadenopathy or JVD. LUNGS: Unlabored respirations. Breath sounds clear to auscultation bilaterally and equal. No wheezes rales or rhonchi. HEART: Regular rate and rhythm without murmurs, rubs or gallops. ABDOMEN: Soft, nontender, normoactive bowel sounds. No guarding, no rebound. No masses appreciated. MUSCULOSKELETAL: Normal extremities with adequate strength and normal range of motion, no pitting or edema. No clubbing or cyanosis. NEUROLOGICAL: Patient is alert and oriented x 3. Motor and sensory are also intact. Cranial nerves II through XII grossly intact. Symmetrical smile. Normal speech, normal gait. PSYCH: Normal mood, normal affect. SKIN: Warm, Dry, normal turgor, no rashes or lesions noted. Limitations: no limitations External exam: Present: normal external exam. Absent: lesions Speculum exam: Present: cervical discharge. Absent: vaginal bleeding, foreign body By manual exam: Present: normal by manual exam Course Vital Signs 07/24/20 07/24/20 13:18 14:16 Temperature 98.3 F Pulse Rate 88 86 Respiratory 18 18 Rate Blood Pressure 138/69 141/84 O2 Sat by Pulse 99 96 Oximetry Medical Decision Making - Medical Decision Making Patient is a 25-year-old female here for vaginal discharge, irritation, odor for the past 3-4 days. No fevers, vitals stable. Exam revealed some white/yellow discharge, some mild erythema. Urinalysis shows no evidence of UTI, Trichomonas is positive. Patient will be treated for gonorrhea and committed as well. Patient is in agreement with this plan of care. We also discussed getting her partner treated. Patient is stable for discharge. She needs follow-up with her regular doctor. Case discussed with Dr. Manriquez. - Lab Data Lab Results 07/24/20 07/24/20 07/24/20 Range/Units 13:59 13:59 13:59 Urine Color Yellow Urine Appearance Clear (Clear) Urine pH 5.5 (5.0-8.0) Ur Specific [place] 1.016 (1.001-1.035) Urine Protein Negative (Negative) Urine Glucose (UA) Negative (Negative) Urine Ketones Negative (Negative) Urine Blood Negative (Negative) Urine Nitrite Negative (Negative) Urine Bilirubin Negative (Negative) Urine Urobilinogen <2.0 (<2.0) mg/dL Ur Leukocyte Esterase Small H (Negative) Urine RBC 1 (0-5) /hpf Urine WBC 3 (0-5) /hpf Ur Squamous Epith Cells 2 (0-4) /hpf Urine HCG, Qual Not Detected (Not Detectd) Trichomonas Ag (Rapid) Positive H (Negative) Disposition Clinical Impression: Trichomonas infection, Vaginal discharge Disposition: HOME SELF-CARE Condition: Stable Instructions (If sedation given, give patient instructions): Trichomoniasis (ED) Additional Instructions: Please return to the Emergency Department if symptoms worsen or any other concerns. Genital culture is pending. Do not drink alcohol for 48 hours after this medication given today. Partners need to be treated as well. Follow-up with your regular doctor. Is patient prescribed a controlled substance at d/c from ED?: No Referrals: Mathieu Howard MD [Primary Care Provider] - 1-2 days
[2020-07-24 14:12] LABS: Appearance,Urine Clear (Clear); Bilirubin,Urine Negative (Negative); Blood,Urine Negative (Negative); Color,Urine Yellow; Glucose,Urine (UA) Negative (Negative); Ketones,Urine Negative (Negative); Leukocyte Esterase,Urine Small (Negative); Nitrite,Urine Negative (Negative); PH, Urine 5.5 (5.0-8.0); Protein,Urine Negative (Negative); RBC,Urine 1 /hpf (0-5); Specific Gravity,Urine 1.016 (1.001-1.035); Squamous Epithelial Cell,Urine 2 /hpf (0-4); Urobilinogen,Urine <2.0 mg/dL (<2.0); WBC,Urine 3 /hpf (0-5)
[2020-07-24] MEDS ORDERED: metroNIDAZOLE 500 MG TAB PO STA (14:57)
[2020-07-24] MEDS ORDERED: cefTRIAXone 250 MG VIAL IM STA (14:57)
[2020-07-24] MEDS ORDERED: AZITHROMYCIN 250 MG TAB PO STA (14:57)
[2020-07-24 15:43] VITALS: BP 132/87; PULSE 65; RESP 16; TEMP 98.5
[2020-07-26 15:14] LABS: C. trachomatis,PCR Negative (Neg,Equiv); Chlamydia trachomatis Source Cervix; N. gonorrhoeae,PCR Negative (Neg,Equiv); Neisseria Source Cervix
== END 2020-07-24 15:44 | disposition home or self-care (01) ==
LOC: EC 13:17
DX: A59.9 Trichomoniasis, unspecified (principal); Z88.5 Allergy status to narcotic agent
CPT/HCPCS: 81001; 81025; 87808; 87491; 87591; 87070; 99283; 96372; J0696

== ENCOUNTER 2020-09-03 13:24 | Emergency (ER) | payer OTHER ==
[2020-09-03 14:10] LABS: Appearance,Urine Clear (Clear); Bilirubin,Urine Negative (Negative); Blood,Urine Negative (Negative); Color,Urine Yellow; Glucose,Urine (UA) Negative (Negative); Ketones,Urine Negative (Negative); Leukocyte Esterase,Urine Negative (Negative); Nitrite,Urine Negative (Negative); Protein,Urine Negative (Negative); Specific Gravity,Urine 1.019 (1.001-1.035); Urobilinogen,Urine <2.0 mg/dL (<2.0)
--- NOTE | 2020-09-03 14:30 | ED ---
Female Urogenital HPI - General Chief complaint: Urogenital Stated complaint: STD Testing Time Seen by Provider: 09/03/20 13:31 Source: patient Mode of arrival: ambulatory Limitations: no limitations - History of Present Illness Initial comments: Patient is a 25-year-old female presenting to the emergency Department with concerns of having a possible STD. Patient states that she had intercourse with a friend of hers who called her 3 days ago stating that he was positive for chlamydia. Patient states she is having some white clear discharge and does have an odor. She denies any abdominal pain, no nausea or vomiting, no fever or chills. She states she does not bleed she is . She denies any further complaints at this time. Upon arrival to the ER her vital signs are stable. Last Menstrual Period: 08/15/20 - Related Data Home Medications Medication Instructions Recorded Confirmed No Known Home Medications 02/27/19 03/02/19 Allergies Allergy/AdvReac Type Severity Reaction Status Date / Time codeine Allergy Rash/Hives Verified 09/03/20 13:28 Review of Systems ROS Statement: Those systems with pertinent positive or pertinent negative responses have been documented in the HPI. ROS Other: All systems not noted in ROS Statement are negative. 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 SICKLE CELL TRAIT History of Any Multi-Drug Resistant Organisms: None Reported Past Surgical History: Cholecystectomy Additional Past Surgical History / Comment(s): WISDOM TEETH REMOVED UNDER ANESTHESIA Past Anesthesia/Blood Transfusion Reactions: No Reported Reaction Past Psychological History: Anxiety, Depression Smoking Status: Current every day smoker Past Alcohol Use History: None Reported Past Drug Use History: None Reported - Past Family History Mother Family Medical History: No Reported History Additional Family Medical History / Comment(s): Mother is alive in her 60s with no major medical problems. Father Family Medical History: No Reported History Additional Family Medical History / Comment(s): Father is alive at age 56 with no major medical problems. Patient has 2 brothers and 1 sister with no major medical problems. General Exam - General Exam Comments Initial Comments: GENERAL: Patient is well-developed and well-nourished. Patient is nontoxic and in no acute distress. HEAD: Atraumatic, normocephalic. EYES: Pupils equal round and reactive to light, extraocular movements intact, sclera anicteric, conjunctiva are normal. Eyelids were unremarkable. ENT: TMs normal, nares patent, oropharynx clear without exudates. Moist mucous membranes. NECK: Normal range of motion, supple without lymphadenopathy or JVD. LUNGS: Unlabored respirations. Breath sounds clear to auscultation bilaterally and equal. No wheezes rales or rhonchi. HEART: Regular rate and rhythm without murmurs, rubs or gallops. ABDOMEN: Soft, nontender, normoactive bowel sounds. No guarding, no rebound. No masses appreciated. MUSCULOSKELETAL: Normal extremities with adequate strength and normal range of motion, no pitting or edema. No clubbing or cyanosis. NEUROLOGICAL: Patient is alert and oriented x 3. Motor and sensory are also intact. Symmetrical smile. Normal speech, normal gait. PSYCH: Normal mood, normal affect. SKIN: Warm, Dry, normal turgor, no rashes or lesions noted. Limitations: no limitations External exam: Present: normal external exam Speculum exam: Present: cervical discharge (Yellow to white in nature) By manual exam: Present: normal by manual exam Course Vital Signs 09/03/20 09/03/20 09/03/20 13:26 14:28 14:58 Temperature 98.1 F 98.3 F Pulse Rate 89 68 Respiratory 20 16 16 Rate Blood Pressure 124/76 107/63 O2 Sat by Pulse 99 96 Oximetry Medical Decision Making - Medical Decision Making Patient is a 25-year-old female here with concerns of possible STD. She recently had intercourse with a male who test positive for chlamydia. She is having vaginal odor and yellow to whitish cervical discharge on exam. Urine is normal, hCG is not detected, rapid Trichomonas is negative. I will treat patient for gonorrhea and chlamydia. She is given 1 g of azithromycin as well as 500mg of Rocephin. Genital culture is pending at this time. She is stable for discharge. Recommended getting partners tested and treated before intercourse. Patient is in agreement with this plan of care. She'll follow-up with her regular doctor. Case discussed with Dr. Lala. - Lab Data Lab Results 09/03/20 09/03/20 09/03/20 Range/Units 14:02 14:10 14:44 Urine Color Yellow Urine Appearance Clear (Clear) Urine pH 6.0 (5.0-8.0) Ur Specific [place] 1.019 (1.001-1.035) Urine Protein Negative (Negative) Urine Glucose (UA) Negative (Negative) Urine Ketones Negative (Negative) Urine Blood Negative (Negative) Urine Nitrite Negative (Negative) Urine Bilirubin Negative (Negative) Urine Urobilinogen <2.0 (<2.0) mg/dL Ur Leukocyte Esterase Negative (Negative) Urine HCG, Qual Not Detected (Not Detectd) Trichomonas Ag (Rapid) Negative (Negative) Disposition Clinical Impression: Exposure to chlamydia, Vaginal discharge Disposition: HOME SELF-CARE Condition: Stable Instructions (If sedation given, give patient instructions): Sexually Transmitted Diseases (ED) Additional Instructions: Please return to the Emergency Department if symptoms worsen or any other concerns. Please practice safe sex. Make sure partner/s are treated as well. Follow-up with your doctor. Is patient prescribed a controlled substance at d/c from ED?: No Referrals: Mathieu Howard MD [Primary Care Provider] - 1-2 days
[2020-09-03 14:32] VITALS: RESP 16
[2020-09-03 15:00] VITALS: BP 107/63; PULSE 68; TEMP 98.3
[2020-09-03] MEDS ORDERED: cefTRIAXone 250 MG VIAL IM STA (15:03)
[2020-09-03] MEDS ORDERED: AZITHROMYCIN 250 MG TAB PO STA (15:03)
== END 2020-09-03 15:20 | disposition home or self-care (01) ==
LOC: EC 13:24
DX: Z20.2 Contact with and (suspected) exposure to infections with a predominantly sexual mode of transmission (principal); N89.8 Other specified noninflammatory disorders of vagina; F17.200 Nicotine dependence, unspecified, uncomplicated; Z88.5 Allergy status to narcotic agent
CPT/HCPCS: 81003; 81025; 87808; 87491; 87591; 87070; 99283; 96372; J0696

== ENCOUNTER 2023-12-02 23:54 | Emergency (ER) | payer BC, OTHER ==
--- NOTE | 2023-12-03 00:25 | ED ---
Nausea/Vomiting/Diarrhea HPI - General Stated complaint: NVD, exhaustion Source: RN notes reviewed, old records reviewed Limitations: no limitations - History of Present Illness Initial comments: 28 female to ED co what appears to be the "24 hour flu" Patient has NVD weakness, body aches and weakenss. Patient feels feverish. No travel history no family members with significant complaints. MD complaint: nausea, vomiting, abdominal pain -: days(s) Description of Vomiting: watery Description of Diarrhea: water Associated Abdominal Pain: Yes Location: diffuse Radiation: none Severity: moderate Severity scale (1-10): 7 Consistency: constant Improves with: none Worsens with: vomiting Associated Symptoms: loss of appetite, nausea/vomiting - Related Data Previous Rx's Medication Instructions Recorded Diphenoxylate HCl/Atropine 1 - 2 tab PO QID PRN 3 Days #24 tab 12/05/23 [Lomotil 2.5-0.025 mg Tablet] Metoclopramide [Reglan] 10 mg PO Q6H PRN #30 tab 12/05/23 Allergies Allergy/AdvReac Type Severity Reaction Status Date / Time codeine Allergy Rash/Hives Verified 12/05/23 10:46 Review of Systems ROS Statement: Those systems with pertinent positive or pertinent negative responses have been documented in the HPI. ROS Other: All systems not noted in ROS Statement are negative. 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 SICKLE CELL TRAIT History of Any Multi-Drug Resistant Organisms: None Reported Past Surgical History: Cholecystectomy Additional Past Surgical History / Comment(s): WISDOM TEETH REMOVED UNDER ANESTHESIA Past Anesthesia/Blood Transfusion Reactions: No Reported Reaction Past Psychological History: Anxiety, Depression Smoking Status: Current every day smoker Past Alcohol Use History: None Reported Past Drug Use History: None Reported - Past Family History Mother Family Medical History: No Reported History Additional Family Medical History / Comment(s): Mother is alive in her 60s with no major medical problems. Father Family Medical History: No Reported History Additional Family Medical History / Comment(s): Father is alive at age 56 with no major medical problems. Patient has 2 brothers and 1 sister with no major medical problems. General Exam General appearance: alert, in no apparent distress Head exam: Present: atraumatic, normocephalic, normal inspection Eye exam: Present: normal appearance, PERRL, EOMI. Absent: scleral icterus, conjunctival injection, periorbital swelling ENT exam: Present: normal exam, mucous membranes moist Neck exam: Present: normal inspection. Absent: tenderness, meningismus, lymphadenopathy Respiratory exam: Present: normal lung sounds bilaterally. Absent: respiratory distress, wheezes, rales, rhonchi, stridor Cardiovascular Exam: Present: regular rate, normal rhythm, normal heart sounds. Absent: systolic murmur, diastolic murmur, rubs, gallop, clicks GI/Abdominal exam: Present: soft, normal bowel sounds. Absent: distended, tenderness, guarding, rebound, rigid Extremities exam: Present: normal inspection, full ROM, normal capillary refill. Absent: tenderness, pedal edema, joint swelling, calf tenderness Back exam: Present: normal inspection Neurological exam: Present: alert, oriented X3, CN II-XII intact Psychiatric exam: Present: normal affect, normal mood Skin exam: Present: warm, dry, intact, normal color. Absent: rash Course Vital Signs 12/03/23 00:22 Temperature 97.8 F Pulse Rate 70 Respiratory 18 Rate Blood Pressure 109/68 O2 Sat by Pulse 98 Oximetry - Reevaluation(s) Reevaluation #1: 12/03/23 00:25 QN completed by myself Dr Preston Reevaluation #2: Patient informed of results and questions answered Reevaluation #3: Patient symptoms are improved here in the ER Reevaluation #4: Was pt. sent in by a medical professional or institution (, PA, WORKFORCE PLANNING ANALYST, urgent care, hospital, or halfway...) When possible be specific @ -no Did you speak to anyone other than the patient for history (EMS, parent, family, police, friend...)? What history was obtained from this source @ -no Did you review nursing and triage notes (agree or disagree)? Why? @ -agree Are old charts reviewed (outside hosp., previous admission, EMS record, old EKG, old radiological studies, urgent care reports/EKG's, halfway records)? Report findings @ -yes Differential Diagnosis (chest pain, altered mental status, abdominal pain women, abdominal pain men, vaginal bleeding, weakness, fever, dyspnea, syncope, headache, dizziness, GI bleed, back pain, seizure, CVA, palpatations, mental health, musculoskeletal)? @ -prior EKG interpreted by me (3pts min.). @ -no X-rays interpreted by me (1pt min.). @ -no CT interpreted by me (1pt min.). @ -no U/S interpreted by me (1pt. min.). @ -no What testing was considered but not performed or refused? (CT, X-rays, U/S, labs)? Why? @ -none What meds were considered but not given or refused? Why? @ -none Did you discuss the management of the patient with other professionals (professionals i.e. , PA, WORKFORCE PLANNING ANALYST, lab, RT, psych nurse, social insurance analyst, support director, teacher, patrol community service officer, egg caser)? Give summary @ -no Was smoking cessation discussed for >3mins.? @ -no Was critical care preformed (if so, how long)? @ -no Were there social determinants of health that impacted care today? How? (Homelessness, low income, unemployed, alcoholism, drug addiction, transportation, low edu. Level, literacy, decrease access to med. care, snf, rehab)? @ -none Was there de-escalation of care discussed even if they declined (Discuss DNR or withdrawal of care, Hospice)? DNR status @ -no What co-morbidities impacted this encounter? (DM, HTN, Smoking, COPD, CAD, Cancer, CVA, ARF, Chemo, Hep., AIDS, mental health diagnosis, sleep apnea, morbid obesity)? @ -none Was patient admitted / discharged? Hospital course, mention meds given and route, prescriptions, significant lab abnormalities, going to OR and other pertinent info. @ - 28 female to the ER for evaluation of nausea and vomiting. Patient symptoms are improved while here in the ER and can be discharged home Discharge Undiagnosed new problem with uncertain prognosis? @ -no Drug Therapy requiring intensive monitoring for toxicity (Heparin, Nitro, Insulin, Cardizem)? @ -no Were any procedures done? @ -no Diagnosis/symptom? @ -Nausea and vomiting Acute, or Chronic, or Acute on Chronic? @ -Acute Uncomplicated (without systemic symptoms) or Complicated (systemic symptoms)? @ -Complicated Side effects of treatment? @ -no Exacerbation, Progression, or Severe Exacerbation? @ -exacerbation Poses a threat to life or bodily function? How? (Chest pain, [place], [place], pneumonia, PE, COPD, DKA, ARF, appy, cholecystitis, CVA, Diverticulitis, Homicidal, Suicidal, threat to staff... and all critical care pts) @ -no Medical Decision Making - Medical Decision Making 28 female to the ER for evaluation of nausea and vomiting. Patient symptoms are improved while here in the ER and can be discharged home Disposition Clinical Impression: Nausea and vomiting Disposition: HOME SELF-CARE Condition: Good Instructions (If sedation given, give patient instructions): Acute Nausea and Vomiting (ED) Is patient prescribed a controlled substance at d/c from ED?: No Referrals: Hamilton Ramirez MD [Primary Care Provider] - 1-2 days Time of Disposition: 00:30
[2023-12-03] MEDS: ONDANSETRON 4 MG ODT STARTER PACK 2 TAB BTL PO STA (00:28)
[2023-12-03] MEDS: ONDANSETRON ODT 4 MG TAB PO STA (00:28)
[2023-12-03 00:30] VITALS: BP 109/68; PULSE 70; RESP 18; TEMP 97.8
== END 2023-12-03 00:31 | disposition home or self-care (01) ==
LOC: EC 23:54
DX: R11.2 Nausea with vomiting, unspecified (principal); F17.200 Nicotine dependence, unspecified, uncomplicated; Z88.5 Allergy status to narcotic agent; Z90.49 Acquired absence of other specified parts of digestive tract
CPT/HCPCS: 99283; S0119

== ENCOUNTER 2023-12-05 10:41 | Emergency (ER) | payer OTHER ==
[2023-12-05] MEDS: DIPHENOX-ATROP 2.5-0.025 MG 1 EACH TAB PO STA (11:20)
[2023-12-05] MEDS: METOCLOPRAMIDE 5 MG/ML 2 ML VIAL IVP STA (11:21)
[2023-12-05] MEDS: SODIUM CHLORIDE 0.9% 1,000 ML IV STA (11:22)
[2023-12-05 11:44] LABS: Appearance,Urine Clear (Clear); Bilirubin,Urine Negative (Negative); Blood,Urine Negative (Negative); Color,Urine Yellow; Glucose,Urine (UA) Negative (Negative); Ketones,Urine 2+ (Negative); Leukocyte Esterase,Urine Negative (Negative); Nitrite,Urine Negative (Negative); Protein,Urine Trace (Negative); Specific Gravity,Urine 1.037 (1.001-1.035)
--- NOTE | 2023-12-05 11:52 | ED ---
Nausea/Vomiting/Diarrhea HPI - General Chief complaint: Nausea/Vomiting/Diarrhea Stated complaint: NVD Time Seen by Provider: 12/05/23 10:48 Source: patient, RN notes reviewed Mode of arrival: ambulatory Limitations: no limitations - History of Present Illness Initial comments: This is a 28-year-old female who presents to the emergency department for analisa sea, vomiting, and diarrhea. Symptoms started 4 days ago. She was evaluated here 2 days ago, however because we were very busy she just wanted a dose of Zofran and discharge home, no testing was done. States that the Zofran has not been effective. She is not taking any medication for the diarrhea. She has minor abdominal cramping as a result of her symptoms. Denies any fever/chills at this time. Also denies any sick contacts. MD complaint: nausea, vomiting, diarrhea - Related Data Previous Rx's Medication Instructions Recorded Diphenoxylate HCl/Atropine 1 - 2 tab PO QID PRN 3 Days #24 tab 12/05/23 [Lomotil 2.5-0.025 mg Tablet] Metoclopramide [Reglan] 10 mg PO Q6H PRN #30 tab 12/05/23 Allergies Allergy/AdvReac Type Severity Reaction Status Date / Time codeine Allergy Rash/Hives Verified 12/05/23 10:46 Review of Systems ROS Statement: Those systems with pertinent positive or pertinent negative responses have been documented in the HPI. ROS Other: All systems not noted in ROS Statement are negative. 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 [employer]IT History of Any Multi-Drug Resistant Organisms: None Reported Past Surgical History: Cholecystectomy Additional Past Surgical History / Comment(s): WISDOM TEETH REMOVED UNDER ANESTHESIA Past Anesthesia/Blood Transfusion Reactions: No Reported Reaction Past Psychological History: Anxiety, Depression Smoking Status: Current every day smoker Past Alcohol Use History: Occasional Past Drug Use History: Marijuana - Past Family History Mother Family Medical History: No Reported History Additional Family Medical History / Comment(s): Mother is alive in her 60s with no major medical problems. Father Family Medical History: No Reported History Additional Family Medical History / Comment(s): Father is alive at age 56 with no major medical problems. Patient has 2 brothers and 1 sister with no major medical problems. General Exam Limitations: no limitations General appearance: alert, in no apparent distress Head exam: Present: atraumatic, normocephalic, normal inspection Respiratory exam: Present: normal lung sounds bilaterally. Absent: respiratory distress, wheezes, rales, rhonchi, stridor Cardiovascular Exam: Present: regular rate, normal rhythm, normal heart sounds. Absent: systolic murmur, diastolic murmur, rubs, gallop, clicks GI/Abdominal exam: Present: soft, normal bowel sounds. Absent: distended, tenderness, guarding, rebound, rigid Neurological exam: Present: alert, oriented X3, CN II-XII intact Psychiatric exam: Present: normal affect, normal mood Skin exam: Present: warm, dry, intact, normal color. Absent: rash Course Vital Signs 12/05/23 12/05/23 10:42 13:40 Temperature 98.0 F 98.9 F Pulse Rate 68 70 Respiratory 18 16 Rate Blood Pressure 136/82 132/79 O2 Sat by Pulse 97 99 Oximetry Medical Decision Making - Medical Decision Making This is a 28 year old female who presents to the emergency department for nausea, vomiting, and diarrhea. Was pt. sent in by a medical professional or institution? @ -No Did you speak to anyone other than the patient for history? @ -No Did you review nursing and triage notes? @ -Yes, and I agree, it is accurate with regards to the patient's symptoms. Were old charts reviewed? @ -No Differential Diagnosis? @ -Differential Nausea and Vomiting: Gastroenteritis, cholecystitis, appendicitis, pancreatitis, migraine, benign positional vertigo, food borne illness, pyelonephritis, irritable bowel syndrome, influenza, Covid, GERD, incarcerated hernia, intestinal obstruction, this is not meant to be an all-inclusive list. EKG interpreted by me (3pts min.)? @ -Not obtained X-rays interpreted by me (1pt min.)? @ -Not obtained CT interpreted by me (1pt min.)? @ -Not obtained U/S interpreted by me (1pt. min.)? @ -Not obtained What testing was considered but not performed? (CT, X-rays, U/S, labs)? Why? @ -None What meds were considered but not given? Why? @ -None Did you discuss the management of the patient with other professionals? @ -No Did you reconcile home meds? @ -No Was smoking cessation discussed for >3mins.? @ -I discussed smoking cessation for greater than 3 minutes. The risk of smoking were discussed with the patient including but not limited to risks of cancer, stroke, coronary artery disease and COPD. Also discussed with patient were multiple methods of quitting smoking. Lastly we discussed the financial cost of smoking. Was critical care preformed (if so, how long)? @ -No Were there social determinants of health that impacted care today? How? (Homelessness, low income, unemployed, alcoholism, drug addiction, transportation, low edu. Level, literacy, decrease access to med. care, fpc, rehab)? @ -No Was there de-escalation of care discussed even if they declined? (Discuss DNR or withdrawal of care, Hospice)? @ -No What co-morbidities impacted this encounter? (DM, HTN, Smoking, COPD, CAD, Cancer, CVA, Hep., AIDS, mental health diagnosis, sleep apnea, morbid obesity)? @ -Smoking Was patient admitted / discharged? @ -Discharged. Lab work demonstrates mild leukocytosis and was otherwise unremarkable. COVID, influenza, and RSV testing were negative. C. difficile testing negative. Urinalysis negative for signs of infection. Patient given IV fluids, Reglan, and Lomotil, which she found beneficial. Symptoms likely viral in nature. Prescription for Reglan and Lomotil provided with dosing instructions reviewed. She is advised to slowly advance her diet as tolerated and remain well-hydrated. Patient discharged home in stable condition. Undiagnosed new problem with uncertain prognosis? @ -None Drug Therapy requiring intensive monitoring for toxicity (Heparin, Nitro, Insulin, Cardizem)? @ -None Were any procedures done? @ -None Diagnosis/symptom? @ -Gastroenteritis Acute, or Chronic, or Acute on Chronic? @ -Acute Uncomplicated (without systemic symptoms) or Complicated (systemic symptoms)? @ -Uncomplicated Side effects of treatment? @ -None Exacerbation, Progression, or Severe Exacerbation] @ -Not applicable Poses a threat to life or bodily function? @ -No Return precautions reviewed in depth, the patient is instructed to return to the emergency department with any new, worsening, or concerning symptoms. Patient verbalized understanding. This case was discussed in detail with the attending ED physician, Dr. Preston. Presentation, findings, and treatment plan discussed in detail as well. - Lab Data Result diagrams: 12/05/23 11:35 12/05/23 11:09 Lab Results 12/05/23 12/05/23 12/05/23 Range/Units 11:09 11:09 11:20 WBC (3.8-10.6) k/uL RBC (3.80-5.40) m/uL Hgb (11.4-16.0) gm/dL Hct (34.0-46.0) % MCV (80.0-100.0) fL MCH (25.0-35.0) pg MCHC (31.0-37.0) g/dL RDW (11.5-15.5) % Plt Count (150-450) k/uL MPV Neutrophils % % Lymphocytes % % Monocytes % % Eosinophils % % Basophils % % Neutrophils # (1.3-7.7) k/uL Lymphocytes # (1.0-4.8) k/uL Monocytes # (0-1.0) k/uL Eosinophils # (0-0.7) k/uL Basophils # (0-0.2) k/uL Sodium 140 (137-145) mmol/L Potassium 3.8 (3.5-5.1) mmol/L Chloride 107 (98-107) mmol/L Carbon Dioxide 25 (22-30) mmol/L Anion Gap 8 mmol/L BUN 15 (7-17) mg/dL Creatinine 0.58 (0.52-1.04) mg/dL Est GFR (CKD-EPI)AfAm >90 (>60 ml/min/1.73 sqM) Est GFR (CKD-EPI)NonAf >90 (>60 ml/min/1.73 sqM) Glucose 91 (74-99) mg/dL Calcium 9.3 (8.4-10.2) mg/dL Magnesium 1.9 (1.6-2.3) mg/dL Total Bilirubin 0.6 (0.2-1.3) mg/dL AST 36 (14-36) U/L ALT 47 H (4-34) U/L Alkaline Phosphatase 76 (38-126) U/L Total Protein 7.4 (6.3-8.2) g/dL Albumin 4.5 (3.5-5.0) g/dL Amylase 62 (30-110) U/L Lipase 41 (23-300) U/L Urine Color Yellow Urine Appearance Clear (Clear) Urine pH 6.0 (5.0-8.0) Ur Specific [place] 1.037 H (1.001-1.035) Urine Protein Trace H (Negative) Urine Glucose (UA) Negative (Negative) Urine Ketones 2+ H (Negative) Urine Blood Negative (Negative) Urine Nitrite Negative (Negative) Urine Bilirubin Negative (Negative) Urine Urobilinogen 3.0 (<2.0) mg/dL Ur Leukocyte Esterase Negative (Negative) Urine HCG, Qual (Not Detectd) C. difficile (EIA) Intrp (Negative) Influenza Type A (PCR) Not Detected (Not Detectd) Influenza Type B (PCR) Not Detected (Not Detectd) RSV (PCR) Not Detected (Not Detectd) SARS-CoV-2 (PCR) Not Detected (Not Detectd) 12/05/23 12/05/23 12/05/23 Range/Units 11:20 11:20 11:35 WBC 11.6 H (3.8-10.6) k/uL RBC 4.82 (3.80-5.40) m/uL Hgb 14.1 (11.4-16.0) gm/dL Hct 39.2 (34.0-46.0) % MCV 81.4 (80.0-100.0) fL MCH 29.3 (25.0-35.0) pg MCHC 36.0 (31.0-37.0) g/dL RDW 13.4 (11.5-15.5) % Plt Count 329 (150-450) k/uL MPV 8.9 Neutrophils % 77 % Lymphocytes % 14 % Monocytes % 5 % Eosinophils % 2 % Basophils % 0 % Neutrophils # 9.0 H (1.3-7.7) k/uL Lymphocytes # 1.7 (1.0-4.8) k/uL Monocytes # 0.6 (0-1.0) k/uL Eosinophils # 0.2 (0-0.7) k/uL Basophils # 0.0 (0-0.2) k/uL Sodium (137-145) mmol/L Potassium (3.5-5.1) mmol/L Chloride (98-107) mmol/L Carbon Dioxide (22-30) mmol/L Anion Gap mmol/L BUN (7-17) mg/dL Creatinine (0.52-1.04) mg/dL Est GFR (CKD-EPI)AfAm (>60 ml/min/1.73 sqM) Est GFR (CKD-EPI)NonAf (>60 ml/min/1.73 sqM) Glucose (74-99) mg/dL Calcium (8.4-10.2) mg/dL Magnesium (1.6-2.3) mg/dL Total Bilirubin (0.2-1.3) mg/dL AST (14-36) U/L ALT (4-34) U/L Alkaline Phosphatase (38-126) U/L Total Protein (6.3-8.2) g/dL Albumin (3.5-5.0) g/dL Amylase (30-110) U/L Lipase (23-300) U/L Urine Color Urine Appearance (Clear) Urine pH (5.0-8.0) Ur Specific [place] (1.001-1.035) Urine Protein (Negative) Urine Glucose (UA) (Negative) Urine Ketones (Negative) Urine Blood (Negative) Urine Nitrite (Negative) Urine Bilirubin (Negative) Urine Urobilinogen (<2.0) mg/dL Ur Leukocyte Esterase (Negative) Urine HCG, Qual Not Detected (Not Detectd) C. difficile (EIA) Intrp Negative (Negative) Influenza Type A (PCR) (Not Detectd) Influenza Type B (PCR) (Not Detectd) RSV (PCR) (Not Detectd) SARS-CoV-2 (PCR) (Not Detectd) Disposition Clinical Impression: Gastroenteritis, Nicotine dependence Disposition: HOME SELF-CARE Instructions (If sedation given, give patient instructions): Acute Nausea and Vomiting (ED), Acute Diarrhea (ED) Additional Instructions: Return to the emergency department with any new, worsening, or concerning symptoms. You can take the Reglan up to every 6 hours as needed for nausea and vomiting. You can take the Lomotil up to 4 times daily for diarrhea. Make sure you remain well-hydrated and slowly advance your diet as tolerated. Follow up with your primary care provider in 1-2 days. Prescriptions: Diphenoxylate HCl/Atropine [Lomotil 2.5-0.025 mg Tablet] 1 - 2 tab PO QID PRN 3 Days #24 tab PRN Reason: Diarrhea Metoclopramide [Reglan] 10 mg PO Q6H PRN #30 tab PRN Reason: Nausea And Vomiting Is patient prescribed a controlled substance at d/c from ED?: No Referrals: Hamilton Ramirez MD [Primary Care Provider] - 1-2 days Time of Disposition: 13:30
[2023-12-05 11:56] LABS: ALT 47 U/L (4-34); AST 36 U/L (14-36); African American GFR (CKD) >90 (>60 ml/min/1.73 sqM); Albumin 4.5 g/dL (3.5-5.0); Alkaline Phosphatase 76 U/L (38-126); Amylase 62 U/L (30-110); Anion Gap 8 mmol/L; Blood Urea Nitrogen 15 mg/dL (7-17); Calcium 9.3 mg/dL (8.4-10.2); Carbon Dioxide 25 mmol/L (22-30); Chloride 107 mmol/L (98-107); Glucose 91 mg/dL (74-99); Lipase 41 U/L (23-300); Magnesium 1.9 mg/dL (1.6-2.3); Non-African American GFR(CKD) >90 (>60 ml/min/1.73 sqM); Potassium 3.8 mmol/L (3.5-5.1); Sodium 140 mmol/L (137-145); Total Bilirubin 0.6 mg/dL (0.2-1.3); Total Protein 7.4 g/dL (6.3-8.2)
[2023-12-05] MEDS: DICYCLOMINE 10 MG/ML 2 ML AMP IM STA (12:22)
[2023-12-05 13:11] LABS: Basophils % (A) 0 %; Eosinophils # (A) 0.2 k/uL (0-0.7); Eosinophils % (A) 2 %; HCT 39.2 % (34.0-46.0); HGB 14.1 gm/dL (11.4-16.0); Lymphocytes # (A) 1.7 k/uL (1.0-4.8); Lymphocytes % (A) 14 %; MCH 29.3 pg (25.0-35.0); MCV 81.4 fL (80.0-100.0); Mean Platelet Volume 8.9; Monocytes # (A) 0.6 k/uL (0-1.0); Monocytes % (A) 5 %; Neutrophils % (A) 77 %; Platelet Count 329 k/uL (150-450); RBC 4.82 m/uL (3.80-5.40); RDW 13.4 % (11.5-15.5); WBC 11.6 k/uL (3.8-10.6)
[2023-12-05 13:58] VITALS: BP 132/79; PULSE 70; RESP 16; TEMP 98.9
== END 2023-12-05 13:53 | disposition home or self-care (01) ==
LOC: EC 10:41
DX: K52.9 Noninfective gastroenteritis and colitis, unspecified (principal); F17.210 Nicotine dependence, cigarettes, uncomplicated; Z11.52 Encounter for screening for COVID-19
CPT/HCPCS: 36415; 80053; 82150; 83690; 83735; 85025; 81003; 81025; 87324; 87636; 99406; 99284; 96374; 96361; 96372; J0500; J2765